=== PATIENT | female | born 1970 | race Caucasian/White ===

== ENCOUNTER 2022-05-11 11:14 | Outpatient (REF) | payer SELFPAY ==
[2022-05-11 12:36] LABS: ALT 30 U/L (14-59); AST 17 U/L (15-37); Albumin 3.7 g/dL (3.4-5.0); Alkaline Phosphatase 72 U/L (46-116); Anion Gap 8.2 mmol/L (3-11); BUN 12 mg/dL (7-18); Bilirubin, Total 0.3 mg/dL (0.2-1.0); CO2 27.8 mmol/L (21.0-32.0); CREATININE 0.8 mg/dL (0.55-1.02); Calcium 9.6 mg/dL (8.5-10.1); Chloride 107 mmol/L (98-107); Glucose 104 mg/dL (74-106); Potassium 4.4 mmol/L (3.5-5.1); Sodium 143 mmol/L (136-145); Total Protein 7.5 g/dL (6.4-8.2)
[2022-05-12 17:12] LABS: GC Result Negative (Negative)
[2022-05-13 08:50] LABS: Chlamydia Result Positive (Negative)
[2022-05-13 09:23] LABS: HIV-1/2 Ag & Ab Screen Negative (Negative)
[2022-05-14 10:28] LABS: Syphilis Serology (RPR) Negative (Negative)
== END 2022-05-11 11:15 | disposition home or self-care (01) ==
LOC: LBN 11:14
PROVIDERS: Visit Provider Nurse Practitioner Family
DX: I10 Essential (primary) hypertension (principal); A64 Unspecified sexually transmitted disease
CPT/HCPCS: 80053; 87389; 87491; 87591; 86592

== ENCOUNTER 2022-09-20 02:50 | Outpatient (CLI) | payer MEDICAID, SELFPAY ==
--- NOTE | 2022-09-20 12:30 | DI.MRI_ITS ---
Exam(s) MR CERVICAL SPINE WO EXAM: MR CERVICAL SPINE WO CLINICAL HISTORY: chronic neck pain, hx of cervical fracture c 2, m54.2,s12.100a TECHNIQUE: Multiplanar multisequence MRI of the cervical spine was performed without intravenous con trast. COMPARISON: MR MR BRAIN AND ORBIT WITH AND WITHOUT CONTRAST from 05/07/2010 FINDINGS: The examination is limited due to patient motion artifact. BONES: Vertebral body heights are maintained. Intervertebral disc spaces are normal. Alignment is nor mal. Bone marrow signal intensity is within normal limits. There is a fracture through the base of th e odontoid which appears old. There is normal marrow signal. There do appear to be mild degenerativ e changes seen at the old fracture site. There is a 1.1 x 0.9 cm well-circumscribed round T2 hyperin tense lesion in the clivus. This is not appear to been present on the MRI of the brain from 0. CERVICAL CORD: Craniovertebral junction is unremarkable. The cervical cord is normal size and signal intensity. SOFT TISSUES: Unremarkable. C2-3: No disc herniation or bulge is identified. No significant central spinal canal or neural forami nal stenosis. C3-4: No disc herniation or bulge is identified. No significant central spinal canal or neural forami nal stenosis C4-5: There is mild prominence of the osteophyte disc complex. No significant central spinal canal o r neural foraminal stenosis C5-6: There is mild prominence of the osteophyte disc complex. No significant central spinal canal o r neural foraminal stenosis C6-7: No disc herniation or bulge is identified. No significant central spinal canal or neural forami nal stenosis C7-T1: No disc herniation or bulge is identified. No significant central spinal canal or neural manan inal stenosis IMPRESSION: 1. Mild degenerative changes in the cervical spine but no significant central spinal canal or neural foraminal stenosis is present. 2. Well-circumscribed hyperintense T2 hyperintense lesion in the clivus. This area should be further evaluated with a CT scan and an MRI of the brain for further evaluation. 3. Old odontoid fracture. DATA REPOSITORY:
--- NOTE | 2022-09-20 12:30 | DI.RAD_ITS ---
Exam(s) XR ANKLE LT COMPLETE EXAM: XR ANKLE LT COMPLETE CLINICAL HISTORY: chronic left ankle pain,m25.572 TECHNIQUE: 2D digital imaging was performed of the left ankle. Three images were obtained. AP, lat eral and oblique views were obtained. COMPARISON: No exams were available for comparison FINDINGS: BONES: No acute fracture is present. No bony destructive lesion is seen. There is a small plantar narayan caneal spur. There is a small enthesophyte at the posterior calcaneus. JOINTS:The ankle mortise is normally aligned. SOFT TISSUE: Normal. IMPRESSION: Unremarkable radiographs of the left ankle. DATA REPOSITORY: RADIATION DOSE DELIVERED:
--- NOTE | 2022-09-20 12:38 | DI.RAD_ITS ---
Exam(s) XR ARTHRITIS SERIES EXAM: XR ARTHRITIS SERIES CLINICAL HISTORY: arthritic hands, assess for erosions,arthralgia,m25.541,m25.542. TECHNIQUE: 2D digital imaging was performed. COMPARISON: No exams were available for comparison FINDINGS: BONES: No acute fracture is present. No bony destructive lesion is seen. JOINTS: No dislocation present. The joint spaces are unremarkable. SOFT TISSUE: Normal. IMPRESSION: Unremarkable radiographs of bilat hands DATA REPOSITORY: RADIATION DOSE DELIVERED:
== END 2022-09-20 03:10 ==
LOC: DI 02:51
PROVIDERS: PCP Nurse Practitioner Family; Visit Provider Nurse Practitioner Family
DX: M47.812 Spondylosis without myelopathy or radiculopathy, cervical region (principal); M25.572 Pain in left ankle and joints of left foot; M25.541 Pain in joints of right hand; M25.542 Pain in joints of left hand
CPT/HCPCS: 72141; 73120; 73610

== ENCOUNTER 2022-10-04 01:31 | Outpatient (CLI) | payer MEDICAID, SELFPAY ==
--- NOTE | 2022-10-04 07:35 | DI.MAMMO_ITS ---
Exam(s) MAMMO SCREENING EXAM: MAMMO SCREENING CLINICAL HISTORY: screening,z12.39. TECHNIQUE: Bilateral full field digital CC and MLO mammographic images were obtained with 3D tomosyn thesis and utilizing computer aided detection (CAD). COMPARISON: None. This is a baseline mammogram on this 52-year-old patient. FINDINGS: Fibroglandular tissue pattern is predominately fatty. There is a benign-appearing small nodule in the upper outer quadrant of the left breast which has melina earance of benign intramammary lymph node. There are no spiculated masses nor malignant-appearing mi crocalcification groups in either breast. There is no significant architectural distortion nor skin thickening-retraction. IMPRESSION: Benign findings. No radiographic evidence of malignancy. BI-RADS Category 2 - Benign Findings Breast Density - Category A - Almost entirely fatty Breast density Category C or D implies that the patient has dense breast tissue. Dense breast tissue can make it harder to find cancer on a mammogram. Dense breast tissue is also associated with an incr eased risk of breast cancer. This information about the result of the mammogram report was provided to the patient to raise their awareness. Use this report when you speak with the patient about their risks for breast cancer, which includes their family history. At that time, you may recommend additional screening tests (Ultrasoun d or MRI) as these tests may add significant information. A negative radiographic report should not delay biopsy if a dominant or clinically suspicious mass is present. Up to ten percent of cancers are not identified on mammography. A negative report may reinforce clinical impression. Adenosis and dense breasts may obscure an underlying neoplasm. False positive reports average 6 to 10%. Patient will receive a letter notifying them of these results.
== END 2022-10-04 01:51 ==
LOC: DI 01:31
PROVIDERS: PCP Nurse Practitioner Family; Visit Provider Nurse Practitioner Family
DX: Z12.31 Encounter for screening mammogram for malignant neoplasm of breast (principal)
CPT/HCPCS: 77063; 77067

== ENCOUNTER 2022-10-24 01:12 | Outpatient (CLI) | payer MEDICAID, SELFPAY ==
--- NOTE | 2022-10-24 14:50 | DI.MRI_ITS ---
Exam(s) MR BRAIN WO EXAM: MR BRAIN WO CLINICAL HISTORY: Clivus lesion seen on cervical MRI, further eval,lesion of brain,g93.9. TECHNIQUE: Multiplanar multisequence MRI of the brain was performed. CONTRAST MATERIAL: Noncontrast. COMPARISON: MR MR CERVICAL SPINE WO from 09/20/2022 FINDINGS: VENTRICLES AND EXTRA AXIAL SPACES: Normal in size and morphology for the patient's age. HEMORRHAGE: None. CEREBRAL PARENCHYMA: No focus of restricted diffusion to suggest acute infarct. No space-occupying le bere identified. MIDLINE SHIFT: None. BRAINSTEM/CEREBELLUM: Normal. CALVARIUM: Normal. ENHANCEMENT: No suspicious enhancement identified. VISUALIZED PARANASAL SINUSES/MASTOIDS: Fluid noted within left mastoid air cells. Minimal mucous ret ention in ethmoid sinuses. OTHER FINDINGS: Circumscribed 10 x 17 by 10 millimeter cystic lesion seen in the right side of the cl ivus posteriorly. It does not appear significantly expansile nor invasive. Additional 10 millimeter by 8 millimeter cystic area is seen on the left-side inferiorly at the skull base. It follows CSF si gnal and may communicate with CSF. The findings could represent dural invagination into the clivus. This could be related to trauma as the patient has an old odontoid fracture. Other considerations inc lude simple bone cyst, Rathke's cleft cyst and neurenteric cyst. IMPRESSION: 10 x 17 millimeter CSF signal lesion in the right side of the clivus and additional left-sided 10 x 8 millimeters cystic lesion. The there have significant mass effect. Additional contrast-enhanced imag ing recommended. Unremarkable MRI of the brain. DATA REPOSITORY:
== END 2022-10-24 01:32 ==
LOC: DI 01:12
PROVIDERS: PCP Nurse Practitioner Family; Visit Provider Nurse Practitioner Family
DX: G93.9 Disorder of brain, unspecified (principal); R94.02 Abnormal brain scan
CPT/HCPCS: 70551

== ENCOUNTER 2022-10-24 02:17 | Outpatient (CLI) | payer MEDICAID, SELFPAY ==
[2022-10-24 15:54] LABS: Abs Immature Grans 0.03 10^3/uL (0.0-0.06); Absolute Basophil Count 0.06 10^3/uL (0.0-0.2); Absolute Eosinophil Count 0.09 10^3/uL (0.0-0.7); Absolute Lymphocyte Count 2.12 10^3/uL (1.2-3.4); Absolute Monocyte Count 1.06 10^3/uL (0.1-0.8); Absolute Neutrophil Count 6.07 10^3/uL (1.2-6.7); Basophils % 0.6; HCT 47.2 % (36.0-46.0); HGB 15.3 g/dL (11.2-15.7); Immature Grans % 0.3; Lymphocytes % 22.5; MCH 30.4 pg (27.0-33.0); MCHC 32.4 % (32.0-36.0); MCV 94 fL (80-95); MPV 10.3 fL (8.0-11.0); Monocytes % 11.2; Neutrophils % 64.4; Platelet Count 284 10^3/uL (130-400); RBC 5.03 10^6/uL (3.93-5.22); RDW 13.2 % (11.7-14.6); RDW-SD 45.7 fL; WBC 9.43 10^3/uL (4.4-10.8)
[2022-10-24 15:55] LABS: ESR 38 mm/hr (0-30)
[2022-10-24 17:31] LABS: ALT 29 U/L (14-59); AST 16 U/L (15-37); Albumin 3.6 g/dL (3.4-5.0); Alkaline Phosphatase 85 U/L (46-116); Anion Gap 9.3 mmol/L (3-11); BUN 9 mg/dL (7-18); Bilirubin, Total 0.4 mg/dL (0.2-1.0); CO2 26.7 mmol/L (21.0-32.0); Calcium 9.8 mg/dL (8.5-10.1); Calculated LDL 138 mg/dL (<100); Chloride 102 mmol/L (98-107); Cholesterol 200 mg/dL (<200); Estimated GFR 67.78 (mL/min/1.73m2); Glucose 105 mg/dL (74-106); HDL Cholesterol 39 mg/dL (40-60); Potassium 4.1 mmol/L (3.5-5.1); Sodium 138 mmol/L (136-145); Total Protein 7.8 g/dL (6.4-8.2); Triglyceride 118 mg/dL (<150)
[2022-10-24 17:40] LABS: C-Reactive Protein 2.21 mg/dL (0.0-0.3)
[2022-10-24 18:12] LABS: Hemoglobin A1C 5.6 % (<5.7)
== END 2022-10-24 02:18 | disposition home or self-care (01) ==
PROVIDERS: PCP Nurse Practitioner Family; Visit Provider Nurse Practitioner Family
DX: G89.29 Other chronic pain (principal); M25.50 Pain in unspecified joint
CPT/HCPCS: 36415; 80053; 80061; 85652; 83036; 84443; 85025; 86140

== ENCOUNTER 2022-10-29 10:11 | Outpatient (REF) | payer MEDICAID, SELFPAY ==
--- NOTE | 2022-10-29 08:40 | PAPFT_PTH ---
PATIENT: Loyda Mendoza LOC: [facility] U#:[id number] AGE/SX: 52/F ROOM: RE10/29/[address]: BRITTANIE De La Torre : 1970 BED: DIS: 10/29/2022 SPEC #: [id number] RECD: 10/29/22 12:58 STATUS: JAROD REQ #: [id number] MONI: 10/29/22 08:[address]: Gloria Diaz DEPT: [facility] Cytology RECD BY: Marina Castellanos Tissues: 1 - CX/ENDOCX FOR PAP SMEARS Procedures: PAP THIN PREP/UVM Screening HPV DNA PROBE Comments: [id number] (HPV 16 & 18/45) (CHLAMYDIA/GC)
[2022-10-30 13:35] LABS: Chlamydia Result Negative (Negative); GC Result Negative (Negative)
== END 2022-10-29 10:12 | disposition home or self-care (01) ==
LOC: LBN 10:11
PROVIDERS: PCP Nurse Practitioner Family; Visit Provider Nurse Practitioner Family
DX: Z11.3 Encounter for screening for infections with a predominantly sexual mode of transmission (principal); Z12.4 Encounter for screening for malignant neoplasm of cervix; R87.610 Atypical squamous cells of undetermined significance on cytologic smear of cervix (ASC-US); Z11.51 Encounter for screening for human papillomavirus (HPV); R87.810 Cervical high risk human papillomavirus (HPV) DNA test positive
CPT/HCPCS: 87491; 87591; 88142; 87624

== ENCOUNTER 2022-10-31 01:25 | Outpatient (CLI) | payer MEDICAID, SELFPAY ==
--- NOTE | 2022-10-31 08:00 | DI.MRI_ITS ---
Exam(s) MR BRAIN W EXAM: MR BRAIN W CLINICAL HISTORY: clivus lesion on brain MRI,F/U ABNL G93.9. TECHNIQUE: Multiplanar multisequence MRI of the brain was performed. CONTRAST MATERIAL: IV Contrast: 20 ML of Dotarem contrast administered. COMPARISON: MR MR BRAIN WO from 10/24/2022 FINDINGS: This is a limited postcontrast examination. The pre contrast examination was performed 10/24/2022. VENTRICLES AND EXTRA AXIAL SPACES: Normal in size and morphology for the patient's age. CEREBRAL PARENCHYMA: No focus of restricted diffusion to suggest acute infarct. No space-occupying le bere identified. MIDLINE SHIFT: None. BRAINSTEM/CEREBELLUM: Normal. CALVARIUM: There is again seen a well-circumscribed nonenhancing hypointense lesion in the right aspe ct the clivus measuring 1.4 x 0.7 cm. It is mildly expansile. No soft tissue component is identifie d. The 2nd lesion in the left aspect measures 0.8 x 0.7 cm. It also shows no enhancement following contrast administration. There is no associated soft tissue mass. ENHANCEMENT: No suspicious enhancement identified. VISUALIZED PARANASAL SINUSES/MASTOIDS: Clear. OTHER FINDINGS: None. IMPRESSION: Nonenhancing well-circumscribed homogeneous lesion seen in the clivus as described above. These may represent cysts. Plasmacytoma should also be considered. Malignancies such is metastasis, chordoma or chondrosarcoma are considered less likely. A CT scan of this area is recommended to assess the ma trix for calcification. DATA REPOSITORY:
[2022-10-31] MEDS: Normal Saline Flush 10 ML SYR IVP (10:20)
[2022-10-31] MEDS: Gadoterate meglumine 20 ML SYRINGE IVP (10:21)
== END 2022-10-31 01:45 ==
LOC: DI 01:25
PROVIDERS: PCP Nurse Practitioner Family; Visit Provider Nurse Practitioner Family
DX: G93.89 Other specified disorders of brain (principal); G93.0 Cerebral cysts; R51.9 Headache, unspecified
CPT/HCPCS: 70552

== ENCOUNTER 2022-12-07 00:49 | Outpatient (CLI) | payer MEDICAID, SELFPAY ==
--- NOTE | 2022-12-07 12:50 | DI.CT_ITS ---
Exam(s) CT HEAD WO EXAM: CT HEAD WO CLINICAL HISTORY: SKULL MASS, M89.8X8, CLIVAL MASS. TECHNIQUE: Imaging Protocol: Axial computed tomography images with coronal and sagittal reformatted images were created and reviewed COMPARISON: CR ORBITS_FOR FOREIGN BODY from 05/07/2010 MR MR BRAIN AND ORBIT WITH AND WITHOUT CONTRAST from 05/07/2010 MR MR BRAIN WO from 10/24/2022 MR MR BRAIN W from 10/31/2022 FINDINGS: Bones: The lesions noted in the clivus on prior MRI show smoothly marginated borders. There is no v isible calcified matrix. The the attenuation is equal to CSF. One appears to communicate with the C SF spaces and may represent CSF invagination. There are no features suspicious for malignancy. Find ings were not present in 2009 and therefore not congenital. Calvarium: Normal. Ventricles and Extra axial spaces: Normal in size and morphology for the patient's age. Hemorrhage: None. Cerebral parenchyma: Normal. Midline shift: None. Brainstem/Cerebellum: Normal. Visualized Paranasal sinuses/Mastoids: Clear. Soft Tissues: Prominent venous structure in the scalp posteriorly at the level of the posterior fossa . IMPRESSION: Lesions in the clivus do not appear masslike and appear to communicate with CSF spaces and may repres ent CSF invaginations. No bony destruction. RADIATION DOSE DELIVERED: 807.43mGy.cm Total DLP DATA REPOSITORY: All CT scans at this facility are submitted to the National Radiology Data Registry (NRDR) Dose Index Registry (DIR) with the [employer] (A[employer]). RADIATION OPTIMIZATION: All CT scans at this facility use at least one of these dose optimization te chniques: automated exposure control; mA and/or kV adjustment per patient size (includes targeted exa ms where dose is matched to clinical indication); or iterative reconstruction.
== END 2022-12-07 01:09 ==
LOC: DI 00:49
PROVIDERS: PCP Nurse Practitioner Family; Visit Provider Neurological Surgery
DX: M84.88 Other disorders of continuity of bone, other site (principal); R93.0 Abnormal findings on diagnostic imaging of skull and head, not elsewhere classified
CPT/HCPCS: 70450

== ENCOUNTER 2023-02-25 11:01 | Outpatient (CLI) | payer MEDICAID, SELFPAY ==
[2023-02-25 12:26] LABS: ESR 31 mm/hr (0-30)
[2023-02-25 17:33] LABS: CRP, High Sensitivity 6.23 mg/L (See Note); Rheumatoid Factor <8.6 IU/mL (<12.0)
[2023-02-26 12:20] LABS: ANA Interpretation Negative (Negative)
[2023-02-26 13:29] LABS: dsDNA Ab, IgG <12.3 IU/mL (<30.0)
== END 2023-02-25 11:02 | disposition home or self-care (01) ==
LOC: LOS 11:01
PROVIDERS: PCP Nurse Practitioner Family; Referring Provider Nurse Practitioner Family; Visit Provider Nurse Practitioner Family
DX: M79.7 Fibromyalgia (principal); M79.675 Pain in left toe(s); M25.541 Pain in joints of right hand; M25.542 Pain in joints of left hand; G89.29 Other chronic pain; M25.572 Pain in left ankle and joints of left foot; R70.0 Elevated erythrocyte sedimentation rate
CPT/HCPCS: 36415; 85652; 86141; 86038; 86225; 86431

== ENCOUNTER 2023-02-26 02:12 | Outpatient (CLI) | payer MEDICAID, SELFPAY ==
--- NOTE | 2023-02-26 07:30 | DI.RAD_ITS ---
Exam(s) XR FOOT LT COMPLETE EXAM: XR FOOT LT COMPLETE CLINICAL HISTORY: left 1st MTP joint pain, chronic toe pain lt foot, M79.675, G89.29. TECHNIQUE: 2D digital imaging was performed of the left foot. Three images were obtained. AP, obli que and lateral views were obtained. COMPARISON: No exams were available for comparison FINDINGS: BONES: No acute fracture is present. No bony destructive lesion is seen. There is a small enthesophyt e at the posterior calcaneus. There is a small spur at the inferior calcaneus. JOINTS: No dislocation present. There is a mild hallux valgus deformity. There is mild narrowing of the 1st MTP joint. SOFT TISSUE: Normal. IMPRESSION: Mild narrowing of the 1st MTP joint. DATA REPOSITORY: RADIATION DOSE DELIVERED:
== END 2023-02-26 02:32 ==
LOC: DI 02:12
PROVIDERS: PCP Nurse Practitioner Family; Visit Provider Nurse Practitioner Family
DX: M19.072 Primary osteoarthritis, left ankle and foot
CPT/HCPCS: 73630

== ENCOUNTER → 2023-05-09 00:50 | Outpatient (CLI) | payer MEDICAID, SELFPAY ==
--- NOTE | 2023-05-09 08:24 | DI.RAD_ITS ---
Exam(s) XR CERVICAL SP ALCANTARA TRAUMA 2-3V EXAM: XR CERVICAL SP ALCANTARA TRAUMA 2-3V CLINICAL HISTORY: ODONTOID FX S12.112S C1-C2 FUSION. TECHNIQUE: 2D digital imaging was performed. COMPARISON: MR MR CERVICAL SPINE WO from 09/20/[address] HEAD WO from 12/07/2022 FINDINGS: BONES: Since the prior examination the patient has undergone a C1-C2 fusion. Alignment appears anato trice the patient has old fracture through the base of the odontoid is again seen. No acute fractures identified. Vertebral bodies are unremarkable. DISKS: At C5-C6 there is disc space narrowing and endplate osteophytes. ALIGNMENT: There is straightening of the normal cervical lordosis. The odontoid and atlantoaxial art iculations are normal. SOFT TISSUE: Normal. The lung apices are clear. IMPRESSION: 1. Interval C1-C2 fusion. Stable odontoid fracture. 2. Mild degenerative changes in the cervical spine. DATA REPOSITORY: RADIATION DOSE DELIVERED:
== END ==
PROVIDERS: PCP Nurse Practitioner Family; Visit Provider Neurological Surgery
DX: M47.12 Other spondylosis with myelopathy, cervical region (principal); M43.22 Fusion of spine, cervical region
CPT/HCPCS: 72040

== ENCOUNTER 2023-06-28 01:39 | Outpatient (CLI) | payer MEDICAID, SELFPAY ==
--- NOTE | 2023-06-28 07:00 | DI.RAD_ITS ---
Exam(s) XR KNEE LT 3V AP,LAT,NARCISO EXAM: XR KNEE LT 3V AP,LAT,NARCISO CLINICAL HISTORY: left knee pain,m25.562. TECHNIQUE: 2D digital imaging was performed. COMPARISON: No exams were available for comparison FINDINGS: 3 views No evidence of fracture or obvious joint effusion. Varicosities are noted. Bone density normal. No osseous lesions. No obvious degenerative changes. IMPRESSION: No acute osseous findings. No obvious joint effusion. Venous varicosities are noted around the ante rior and medial aspect of the knee. DATA REPOSITORY: RADIATION DOSE DELIVERED:
== END 2023-06-28 01:59 ==
LOC: DI 01:39
PROVIDERS: PCP Nurse Practitioner Family; Visit Provider Nurse Practitioner Family
DX: M25.562 Pain in left knee (principal)
CPT/HCPCS: 73562

== ENCOUNTER 2023-09-29 11:00 | Emergency (ER) | payer MEDICAID, SELFPAY ==
[2023-09-29] VITALS (23 sets, daily range): BP systolic 119–139; BP diastolic 54–90; PULSE 54–75; RESP 12–25; TEMP 36.6–36.8; O2SAT 95–98
--- NOTE | 2023-09-29 11:15 | DI.CT_ITS ---
Exam(s) CT HEAD WO EXAM: CT HEAD WO CLINICAL HISTORY: headache, craniotomy 09/17. TECHNIQUE: Imaging Protocol: Axial computed tomography images with coronal and sagittal reformatted images were created and reviewed COMPARISON: CT CT HEAD WO from 12/07/2022 FINDINGS: Ventricles and Extra axial spaces: Extra-axial fluid collection with some bubbles of air in the regio n of the left frontal parietal craniotomy. Maximal thickness 7 millimeters. No significant mass eff ect. Ventricles normal in size and morphology for the patient's age. Hemorrhage: None. Cerebral parenchyma: No evidence of acute infarct or mass. Midline shift: None. Brainstem/Cerebellum: Normal. Calvarium: Left frontal parietal craniotomy Visualized Paranasal sinuses:Clear. Mastoids: Opacification of left mastoid air cells. Soft Tissues: Left skin jimbo. Mild swelling. No drainable hematoma. ORBITS: Unremarkable. PITUITARY: Normal. IMPRESSION: Status post left craniotomy. Subjacent extra-axial fluid collection which may be within normal limit s post recent surgery. RADIATION DOSE DELIVERED: Total DLP DATA REPOSITORY: All CT scans at this facility are submitted to the National Radiology Data Registry (NRDR) Dose Index Registry (DIR) with the [employer] (ACR). RADIATION OPTIMIZATION: All CT scans at this facility use at least one of these dose optimization te chniques: automated exposure control; mA and/or kV adjustment per patient size (includes targeted exa ms where dose is matched to clinical indication); or iterative reconstruction.
--- NOTE | 2023-09-29 11:24 | W.ED.GENAD ---
HPI General Date/Time Provider Initiated Documentation: 09/29/23 11:01. Limitations to Documentation: no limitations. Information obtained by: patient. History of Present Illness 53 year old F presents to the emergency department with the chief complaint of headache, described as moderate, Patient started experiencing this day(s) (1) and it has been constant. No relieving factors improve symptom(s), Other factors that worsen symptoms (bright lights) . Patient notes denies chest pain, fever/chills and shortness of breath. Patient did receive the following treatments prior to arrival, none Related Data Home Medications Medication Instructions Recorded Confirmed multivitamin 1 tab PO DAILY 06/04/13 09/29/23 cholecalciferol (vitamin D3) 25 25 mcg PO DAILY 05/11/22 09/29/23 mcg (1,000 unit) capsule vitamin B complex (B 1 tab PO DAILY 05/11/22 09/29/23 Complex-Vitamin B12 tablet) acetaminophen 500 mg tablet 1,000 mg PO TID 10/29/22 09/29/23 (Tylenol Extra Strength) lisinopril 20 mg tablet 20 mg PO DAILY #90 tabs 10/29/22 09/29/23 duloxetine 60 mg capsule,delayed 60 mg PO DAILY #90 caps 11/12/22 09/29/23 release ondansetron 4 mg disintegrating 4 mg PO Q8H PRN nausea and 01/17/23 09/29/23 tablet vomiting #20 tabs diazepam 2 mg tablet 2 mg PO PRN 06/26/23 09/29/23 celecoxib 200 mg capsule (Celebrex) 200 mg PO BID 09/23/23 09/29/23 levetiracetam 750 mg tablet 1,500 mg PO BID 09/23/23 09/29/23 oxycodone 5 mg tablet 2.5 mg PO Q6H PRN 09/23/23 09/29/23 Previous Rx's Medication Instructions Recorded lisinopril 20 mg tablet 20 mg PO DAILY #90 tabs 10/29/22 duloxetine 60 mg capsule,delayed 60 mg PO DAILY #90 caps 11/12/22 release ondansetron 4 mg disintegrating 4 mg PO Q8H PRN nausea and 01/17/23 tablet vomiting #20 tabs Allergies Allergy/AdvReac Type Severity Reaction Status Date / Time No Known Allergies Allergy Verified 09/29/23 11:21 General Stated Complaint: Headache AP: 2 Review of Systems All systems reviewed & are unremarkable except as noted in HPI and below Constitutional Constitutional: Denies chills, Denies fever(s) and Denies weakness Eyes Eyes: Denies loss of vision Cardiovascular Cardiovascular: Denies chest pain and Denies dyspnea Respiratory Respiratory: Denies cough and Denies dyspnea Gastrointestinal Gastrointestinal: Denies abdominal pain and Denies vomiting Integumentary/Breasts Skin/Breast: Denies rash Neurologic Neurologic: Denies loss of vision and Denies weakness Exam Const General: no acute distress Orientation: alert HENMT Head: no contusions and no hematomas Ears: external ears normal General nose exam: external nose normal Mouth: moist mucous membranes Eyes General: appearance normal, both eyes and all related structures Neck Neck: normal visual inspection Resp Effort & Inspection: normal respiratory effort and able to speak in complete sentences Cardio Rate: regular rate Skin General skin exam: no rashes or lesions noted Neuro General: patient alert and patient oriented x3 Extrem General: normal to inspection Psych Mental Status: mental status grossly normal Course Vital Signs Vital signs: Vital Signs Temperature 36.8 C 09/29/23 11:13 Pulse 70 09/29/23 11:13 Respiratory Rate 18 09/29/23 11:13 Blood Pressure 121/72 09/29/23 11:13 Pulse Oximetry 98 09/29/23 11:13 Temperature 36.8 C 09/29/23 11:13 Temperature Source Temporal Artery Scan 09/29/23 11:13 Pulse 70 09/29/23 11:13 Respiratory Rate 18 09/29/23 11:13 Blood Pressure 121/72 09/29/23 11:13 Blood Pressure Position Supine 09/29/23 11:13 Pulse Oximetry 98 09/29/23 11:13 Oxygen Delivery Method Room Air 09/29/23 11:13 Oxygen Flow Rate 0 09/29/23 11:13 Medical Decision Making 53 yo female with hx of htn, fibromyalgia, frequent headaches, who had an attempted procedure to repair a tegmen defect earlier this month with [facility] [place], had a craniotomy but then aborted the procedure due to seizures, comes in with headahce similar to her prior headaches since lastnight. Denies fevers, chills, vision changes though she is sensitive to light and makes the pain worse. No neck stiffness or pain. She is caox4 on arrival. PERRL, eomi. She has jimbo on the left parietal scalp that appear well healed without erythema or discharge. No meningismus, no focal deficits, clear speech. She states the pain has slowly worsened since last night and localizes to the left frontal and left posterior head. Will treat as tension headache vs migraine with compazine and benadryl and obtain noncontrast CT gien the recent procedure. No findings on exam to suggest operations inspector infection labs unremarkable, ct shows expected post op changes, will consult with neurosurgery at [facility] and have them review the CT. Patient stable and states head pain significantly improved. discussed case with neurosurgery resident who reviewed the case with his team and did not feel there was any concerning findings on the CT. She continues to feel well and hsa no pain, they will follow up with her this week and return precautions given Differential Diagnosis Differential Diagnosis: migraine, headache, post op complication, hemorrhage Medical Records Medical records reviewed: Yes I reviewed the patient's medical records. Imaging Data Radiologic Study: Attestation: I personally reviewed and interpreted this imaging study as follows: Imaging: CT Scan Radiologist's impression: MPRESSION: 1. Surgical changes of left pterional craniotomy with postop surgical bed extra-axial collection measuring 7 mm. 2. No large territorial infarct, significant midline shift or mass. Lab Data Lab results reviewed: Yes I reviewed the patient's lab results. Quality:SDOH Health Related Social Needs: No Data to Display PFSH All Active Problems (Updated 09/29/23 @ 13:22 by Srinivasan Pruitt MD) Headache (Acute) Temporal encephalocele (Acute) Followed by [facility] ENT CSF leak from ear (Acute) Left ear Major depressive disorder, recurrent (Chronic) Chronic neck pain (Chronic) Chronic pain of left ankle (Chronic) Essential hypertension (Chronic) Insomnia (Chronic) Generalized anxiety disorder (Chronic) Chronic headaches (Chronic) Left ear hearing loss (Chronic) Fibromyalgia (Chronic) Abnormal Papanicolaou smear of cervix with positive human papilloma virus (HPV) test (Acute) 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 Son No problems noted. Daughter No problems noted. Social History (Updated 10/30/22 @ 17:31 by Lenora Hardin) Smoking/Tobacco Use Status: Current every day Tobacco Type: cigarettes and e-cigarettes Quit status: considering quitting Second Hand Exposure: Yes Smoking risk assessment performed?: Yes Alcohol Intake: current Alcohol Intake frequency: holidays/special occasions only Alcohol type: wine Drug use: Daily Substance use type: marijuana Caregiver/Support person: No Household members: spouse, children and adopted family Housing: house Communication Needs: Hard of Hearing Do you need help understanding health information?: Rarely Pets and animals: Yes Pets and animals: dog(s) Sexually active: Yes Do you think of yourself as: straight/heterosexual Current gender identity: female What is your relationship status?: How often do you talk on the phone with friends or family?: three or more times per week How often do you get together with friends or relatives?: three or more times per week How often do you attend pentecostal or caodaism services?: decline to answer Do you belong to any clubs or organized social groups?: no Panel score (0-1 are the most socially isolated patients): 2 What type of physical activity do you participate in: walking and bicycling Duration: 15-30 minutes/day Frequency: 3-4 times per week Duyen/Congregation: No preference Special duyen needs: No Seatbelt use: never Helmet use: No Drive intox or ride w/intox steam train driver: No Female Reproductive History Menstrual Menopause type: natural Date of menopause: 09/08/21 History History 4 Para 3 Hx # Term Pregnancies 2 Multiple births Hx # Pregnancies 1 Ectopic pregnancies AB induced Hx Number of Living Children 3 AB spontaneous 1 Past Pregnancies Del. Date GA/Weeks # Preg Succ Route Wgt Sex Labor Lgth Anesthesia Location Prov Complic 07/26/89 40 No Yes vaginal 3005.049 g [facility] 06/27/91 0 No Yes vaginal 3203.496 g Female [facility] 04/22/93 34 No Yes vaginal 2551.457 g Male [facility] Delivery Date: 07/26/89 Last Updated by: Brandi Marquez MD [facility] Delivery Date: 06/27/91 Last Updated by: Brandi Marquez MD Aily[facility] Delivery Date: 04/22/93 Last Updated by: MD Jamie Matos Discharge Plan Disposition Patient Disposition: Home Condition: Stable Discharge Details Clinical Impression: Headache Primary Care Provider: Gloria Diaz ED Provider: Srinivasan Pruitt Home Meds and New Rx's Prescriptions: Continued vitamin B complex [B Complex-Vitamin B12] Tablet 1 tab PO DAILY cholecalciferol (vitamin D3) 25 mcg (1,000 unit) capsule 25 mcg PO DAILY acetaminophen [Tylenol Extra Strength] 500 mg tablet 1,000 mg PO TID lisinopril 20 mg tablet 20 mg PO DAILY Qty: 90 3RF Rx Instructions: Take 1 tab daily diazepam 2 mg tablet 2 mg PO PRN Patient Comments: TAKE ONE TABLET BY MOUTH EVERY 6 HOURS NEEDED FOR MUSCLE SPASMS multivitamin 1 EACH tablet 1 tab PO DAILY duloxetine 60 mg capsule,delayed release(DR/EC) 60 mg PO DAILY Qty: 90 3RF Rx Instructions: Take 1 pill daily ondansetron 4 mg tablet,disintegrating 4 mg PO Q8H PRN (Reason: nausea and vomiting) Qty: 20 0RF Rx Instructions: Per [facility] Neurosurgery 01/09/23. -hb celecoxib [Celebrex] 200 mg capsule 200 mg PO BID Patient Comments: Started 09/20/23 levetiracetam 750 mg tablet 1,500 mg PO BID Patient Comments: Start date 09/20/23 oxycodone 5 mg tablet 2.5 mg PO Q6H PRN Patient Comments: Started 09/20/23 Discharge Instructions Instructions: General Headache (ED) Additional Instructions: your cat scan did not show concerning findings and your neurosurgery team at [facility] also felt the cat scan was not concerning after reviewing it themselves. they should contact you for a follow up appointment this week if you feel more ill, have severe worsening pain or new symptoms such as fevers return to the emergency department
[2023-09-29] MEDS: diphenhydrAMINE 50 MG/ML VIAL 25 MG IVP (11:33)
[2023-09-29] MEDS: Prochlorperazine 10 MG/2 ML VIAL IVP (11:33)
[2023-09-29] MEDS: Normal Saline 1,000 ML 1000 ML IV (11:33)
[2023-09-29 11:36] LABS: Abs Immature Grans 0.01 10^3/uL (0.0-0.06); Absolute Basophil Count 0.06 10^3/uL (0.0-0.2); Absolute Eosinophil Count 0.16 10^3/uL (0.0-0.7); Absolute Lymphocyte Count 2.24 10^3/uL (1.2-3.4); Absolute Neutrophil Count 5.12 10^3/uL (1.2-6.7); Basophils % 0.7; HCT 39.9 % (36.0-46.0); HGB 13.2 g/dL (11.2-15.7); Immature Grans % 0.1; Lymphocytes % 27.4; MCH 30.9 pg (27.0-33.0); MCHC 33.1 % (32.0-36.0); MCV 93 fL (80-95); MPV 9.7 fL (8.0-11.0); Monocytes % 7.3; Neutrophils % 62.5; Platelet Count 397 10^3/uL (130-400); RBC 4.27 10^6/uL (3.93-5.22); RDW 13.2 % (11.7-14.6); RDW-SD 45.2 fL; WBC 8.19 10^3/uL (4.4-10.8)
[2023-09-29 11:53] LABS: ALT 26 U/L (14-59); AST 18 U/L (15-37); Alkaline Phosphatase 72 U/L (46-116); Anion Gap 9.4 mmol/L (3-11); BUN 19 mg/dL (7-18); Bilirubin, Total 0.2 mg/dL (0.2-1.0); CO2 25.6 mmol/L (21.0-32.0); CREATININE 0.8 mg/dL (0.55-1.02); Calcium 9.2 mg/dL (8.5-10.1); Chloride 104 mmol/L (98-107); Estimated GFR 88.05 (mL/min/1.73m2); Glucose 106 mg/dL (74-106); Potassium 3.9 mmol/L (3.5-5.1); Sodium 139 mmol/L (136-145); Total Protein 7.1 g/dL (6.4-8.2)
--- NOTE | 2023-09-29 12:05 | DI.VRAD_ITS ---
PROCEDURE INFORMATION: Exam: CT Head Without Contrast Exam date and time: 09/29/2023 11:50 AM Age: 53 years old Clinical indication: Pain; Prior surgery; Surgery date: <1 month; Surgery type: Tegmen defect / headache, craniotomy 09/17 TECHNIQUE: Imaging protocol: Computed tomography of the head without contrast. COMPARISON: CT HEAD WO 12/07/2022 12:50 PM FINDINGS: Brain: Expected extra-axial fluid with pockets of air at the surgical bed measuring 7 mm. No significant mass effect or midline shift. No uncal herniation. No large territorial infarct. Cerebral ventricles: No ventriculomegaly. Pituitary gland and sella: There is a partially empty sella. Paranasal sinuses: Mild mucosal disease the right ethmoid air cells. Mastoid air cells: There is opacification of the left mastoid air cells. Bones/joints: Partially included transpedicular screws of C1. Surgical changes left pterional craniotomy. Soft tissues: Unremarkable. IMPRESSION: 1. Surgical changes of left pterional craniotomy with postop surgical bed extra-axial collection measuring 7 mm. 2. No large territorial infarct, significant midline shift or mass. Dictated and Authenticated by: Nickolas Thompson MD. Ordering:NUSRAT Mattson MD
== END 2023-09-29 13:32 | disposition home or self-care (01) ==
PROVIDERS: Emergency Provider Emergency Medicine; PCP Nurse Practitioner Family
DX: R51.9 Headache, unspecified (principal); I10 Essential (primary) hypertension; F17.290 Nicotine dependence, other tobacco product, uncomplicated; F17.210 Nicotine dependence, cigarettes, uncomplicated; Z98.1 Arthrodesis status
CPT/HCPCS: 36415; 80053; 96361; 96374; 99284; 70450; 83735; 85025; J0780; J1200

== ENCOUNTER 2023-10-30 09:49 | Outpatient (REF) | payer MEDICAID, SELFPAY ==
--- NOTE | 2023-10-30 09:12 | PAPFT_PTH ---
PATIENT: Loyda Mendoza LOC: [facility] U#:[id number] AGE/SX: 53/F ROOM: RE10/30/[address]: BRITTANIE De La Torre : 1970 BED: DIS: 10/30/2023 SPEC #: [id number] RECD: 10/30/23 13:08 STATUS: JAROD REAdelita #: [id number] MONI: 10/30/23 09:[address]: Gloria Diaz [facility]PT[facility] Cytology RECD BY: Marina Castellanos Tissues: 1 - CX/ENDOCX FOR PAP SMEARS Procedures: PAP THIN PREP/UVM Screening HPV DNA PROBE Comments: [id number] (HPV 16 & 18/45)
== END 2023-10-30 09:50 | disposition home or self-care (01) ==
LOC: LBN 09:49
PROVIDERS: PCP Nurse Practitioner Family; Visit Provider Nurse Practitioner Family
DX: Z01.419 Encounter for gynecological examination (general) (routine) without abnormal findings (principal); Z12.4 Encounter for screening for malignant neoplasm of cervix
CPT/HCPCS: 88142; 87624

== ENCOUNTER → 2023-11-08 00:44 | Outpatient (CLI) | payer MEDICAID, SELFPAY ==
--- NOTE | 2023-11-08 15:15 | DI.MAMMO_ITS ---
Exam(s) MAMMO SCREENING EXAM: MAMMO SCREENING CLINICAL HISTORY: screening,Z12.39 TECHNIQUE: Mammograms were interpreted according to the usual protocol including computer analysis w [employer] CAD system, tomosynthesis and C-view imaging. COMPARISON: 2022 FINDINGS: The breasts are composed of mainly fatty density , Breast Density category A. No suspicious masses or suspicious microcalcifications are seen. No skin thickening or abnormal axillary lymph nodes are seen. There has been no significant change from prior exam. IMPRESSION: BI-RADS Category 1, Negative mammogram Yearly screening mammography is recommended. Breast Density - Category A, fatty density. A negative radiographic report should not delay biopsy if a dominant or clinically suspicious mass is present. Up to ten percent of cancers are not identified on mammography. A negative report may reinforce clinical impression. Adenosis and dense breasts may obscure an underlying neoplasm. False positive reports average 6 to 10%. Patient will receive a letter notifying them of these results.
== END ==
PROVIDERS: PCP Nurse Practitioner Family; Visit Provider Nurse Practitioner Family
DX: Z12.31 Encounter for screening mammogram for malignant neoplasm of breast (principal)
CPT/HCPCS: 77063; 77067

== ENCOUNTER 2024-01-31 02:45 | Outpatient (CLI) | payer MEDICAID, SELFPAY ==
[2024-01-31 16:14] LABS: Abs Immature Grans 0.01 10^3/uL (0.0-0.06); Absolute Basophil Count 0.06 10^3/uL (0.0-0.2); Absolute Lymphocyte Count 1.72 10^3/uL (1.2-3.4); Absolute Monocyte Count 0.47 10^3/uL (0.1-0.8); Absolute Neutrophil Count 4.02 10^3/uL (1.2-6.7); Basophils % 0.9 %; Eosinophils % 3.1 %; HGB 13.6 g/dL (11.2-15.7); Immature Grans % 0.2 %; Lymphocytes % 26.5 %; MCH 31.2 pg (27.0-33.0); MCHC 33.2 % (32.0-36.0); MCV 94 fL (80-95); MPV 10.6 fL (8.0-11.0); Monocytes % 7.3 %; Platelet Count 275 10^3/uL (130-400); RBC 4.36 10^6/uL (3.93-5.22); RDW 12.3 % (11.7-14.6); WBC 6.48 10^3/uL (4.4-10.8)
[2024-01-31 17:00] LABS: ALT 26 U/L (14-59); AST 16 U/L (15-37); Albumin 3.5 g/dL (3.4-5.0); Alkaline Phosphatase 79 U/L (46-116); Anion Gap 8.5 mmol/L (3-11); BUN 13 mg/dL (7-18); Bilirubin, Total 0.3 mg/dL (0.2-1.0); CO2 27.5 mmol/L (21.0-32.0); CREATININE 0.9 mg/dL (0.55-1.02); Calcium 8.8 mg/dL (8.5-10.1); Chloride 102 mmol/L (98-107); Estimated GFR 76.44 (mL/min/1.73m2); Glucose 93 mg/dL (74-106); Potassium 4.3 mmol/L (3.5-5.1); Sodium 138 mmol/L (136-145); Total Protein 7.2 g/dL (6.4-8.2)
== END 2024-01-31 02:46 | disposition home or self-care (01) ==
LOC: LBO 02:45
PROVIDERS: PCP Nurse Practitioner Family; Visit Provider Nurse Practitioner Family
DX: Z01.818 Encounter for other preprocedural examination (principal)
CPT/HCPCS: 36415; 80053; 85025

== ENCOUNTER 2024-02-06 08:26 | Outpatient (CLI) | payer MEDICAID, SELFPAY ==
--- NOTE | 2024-02-06 08:30 | RT.EKG_ITS ---
APPROVED REPORT Exam: Resting ECG Reason for Exam: preop EKG Patient Location: O HR:56 bpm ECG Measurements Heart Rate 56 AXIS OR 191 P 55 QRSd 108 QRS 25 QT 493 T 49 QTc 476 Conclusion Sinus rhythm...normal P axis, V-rate 50- 99 Borderline low voltage, extremity leads...all extremity leads <0.6mV Otherwise normal ECG
== END 2024-02-06 08:27 | disposition home or self-care (01) ==
PROVIDERS: PCP Nurse Practitioner Family; Visit Provider Nurse Practitioner Family
DX: Z01.818 Encounter for other preprocedural examination (principal)
CPT/HCPCS: 93005; 93010

== ENCOUNTER 2024-10-30 19:44 | Emergency (ER) | payer MEDICAID, SELFPAY ==
--- NOTE | 2024-10-30 19:45 | DI.RAD_ITS ---
Exam(s) XR CHEST 2V PA LATERAL EXAM: XR CHEST 2V PA LATERAL CLINICAL HISTORY: cough, sob TECHNIQUE: 2D digital imaging was performed of the chest. Two images were obtained. PA and lateral views were obtained. COMPARISON: No exams were available for comparison FINDINGS: MEDIASTINUM: Normal. HEART: Normal. PULMONARY VASCULATURE: Normal. LUNGS: Clear. PLEURAL SPACE: No pleural effusion or pneumothorax. BONE:Within normal limits for the patient's age. OTHER FINDINGS:Normal. IMPRESSION: No acute pulmonary findings. DATA REPOSITORY: RADIATION DOSE DELIVERED:
[2024-10-30 19:47] VITALS: BP 150/71; PULSE 80; RESP 18; TEMP 36.7; O2SAT 97
--- NOTE | 2024-10-30 19:52 | W.ED.GENAD ---
Discharge Plan Disposition Patient Disposition: Home Condition: Stable Discharge Details Clinical Impression: Viral syndrome Primary Care Provider: Gloria Diaz ED Provider: Gideon Mayer Home Meds and New Rx's Prescriptions: Continued vitamin B complex [B Complex-Vitamin B12] Tablet 1 tab PO DAILY cholecalciferol (vitamin D3) 25 mcg (1,000 unit) capsule 25 mcg PO DAILY multivitamin 1 EACH tablet 1 tab PO DAILY levetiracetam 750 mg tablet 1,500 mg PO BID Patient Comments: Start date 09/20/23 duloxetine 60 mg capsule,delayed release(DR/EC) 60 mg PO DAILY Qty: 90 3RF Rx Instructions: Take 1 pill daily ondansetron 4 mg tablet,disintegrating 4 mg PO Q8H PRN (Reason: nausea and vomiting) Qty: 30 0RF acetaminophen 325 mg tablet See Rx Instructions PO Q6H PRN Rx Instructions: 975mg orally every 6 hours PRN; lisinopril 20 mg tablet 20 mg PO DAILY Qty: 90 3RF Rx Instructions: Take 1 tab daily propranolol 60 mg capsule,extended release 24 hr 60 mg PO DAILY Patient Comments: TAKE ONE CAPSULE BY MOUTH EVERY DAY tramadol 50 mg tablet 50 mg PO DAILY PRN Patient Comments: TAKE ONE TABLET BY MOUTH EVERY 6 HOURS NEEDED FOR PAIN magnesium oxide 400 mg (241.3 mg magnesium) tablet 400 mg PO DAILY Patient Comments: TAKE ONE TABLET BY MOUTH EVERY DAY hydroxyzine HCl 10 mg tablet 10 mg PO BID PRN Patient Comments: TAKE ONE TABLET BY MOUTH TWICE A DAY NEEDED FOR HEADACHE No Action baclofen 5 mg tablet 5 - 10 mg PO TID PRN (Reason: muscle spasm) Qty: 90 0RF azithromycin 250 mg tablet 250 mg PO DAILY 5 Days Qty: 6 0RF Rx Instructions: Take 2 tablets on day one and then 1 tablet once a day for the next 4 days amoxicillin-pot clavulanate 875-125 mg tablet 1 tab PO Q12H Qty: 14 0RF Rx Instructions: Take 1 tablet twice a day for 7 days Discharge Instructions Instructions: Cough, runny nose, and the common cold, Albuterol Additional Instructions: You were seen in the emergency department for your viral syndrome, you are negative for COVID and the flu, your chest x-ray shows no pneumonia. Please take regular dose of cough medicine and use the provided inhaler for any symptomatic shortness of breath, please obtain igic-iee-ijzrbor SpO2 monitor at any pharmacy and monitor your oxygen, please return for any respiratory distress or oxygen readings in the 88% range. I do not think empiric antibiotics are warranted at this time, you may follow-up with express care or your primary care provider if you are still sick after around the 10-day brittany for empiric antibiotics at that time. Referrals: Gloria Diaz NP [Primary Care Provider] - Discharge Data Discharge Date/Time-TO BE ENTERED AT DEPARTURE: 10/30/24 21:24 HPI General Date/Time Provider Initiated Documentation: 10/30/24 19:51. HPI Narrative: 54 year-old female presents to ED today by POV/ambulating with a chief complaint of chest congestion, cough, nausea with onset today- recently her nephew was diagnosed with pneumonia, she spent 3 days with him. Quality described as generalized malaise/cold symptoms, no radiation to respiratory distress, intractable vomiting, abdominal pain, chest pain, high fevers. Severity is described as mild to moderate. Palliating factors include took one dose Tylenol at 6pm. Provoking factors include nothing specific. Patient not anticoagulated. Related Data Home Medications ?Medication ?Instructions ?Recorded ?Confirmed multivitamin 1 tab PO DAILY 06/04/13 11/02/24 cholecalciferol (vitamin D3) 25 25 mcg PO DAILY 05/11/22 11/02/24 mcg (1,000 unit) capsule vitamin B complex (B 1 tab PO DAILY 05/11/22 11/02/24 Complex-Vitamin B12 tablet) levetiracetam 750 mg tablet 1,500 mg PO BID 09/23/23 11/02/24 duloxetine 60 mg capsule,delayed 60 mg PO DAILY #90 caps 11/18/23 11/02/24 release ondansetron 4 mg disintegrating 4 mg PO Q8H PRN nausea and 03/05/24 11/02/24 tablet vomiting #30 tabs acetaminophen 325 mg tablet See Rx Instructions PO Q6H PRN 05/22/24 11/02/24 lisinopril 20 mg tablet 20 mg PO DAILY #90 tabs 09/25/24 11/02/24 hydroxyzine HCl 10 mg tablet 10 mg PO BID PRN 10/30/24 11/02/24 magnesium oxide 400 mg (241.3 mg 400 mg PO DAILY 10/30/24 11/02/24 magnesium) tablet propranolol 60 mg capsule,24 60 mg PO DAILY 10/30/24 11/02/24 hr,extended release tramadol 50 mg tablet 50 mg PO DAILY PRN 10/30/24 11/02/24 amoxicillin 875 mg-potassium 1 tab PO Q12H #14 tabs 11/02/24 11/02/24 clavulanate 125 mg tablet azithromycin 250 mg tablet 250 mg PO DAILY 5 days #6 tabs 11/02/24 11/02/24 baclofen 5 mg tablet 5 - 10 mg (1 - 2 x 5 mg) PO TID 11/02/24 11/02/24 PRN muscle spasm #90 tabs Previous Rx's ?Medication ?Instructions ?Recorded duloxetine 60 mg capsule,delayed 60 mg PO DAILY #90 caps 11/18/23 release ondansetron 4 mg disintegrating 4 mg PO Q8H PRN nausea and 03/05/24 tablet vomiting #30 tabs lisinopril 20 mg tablet 20 mg PO DAILY #90 tabs 09/25/24 amoxicillin 875 mg-potassium 1 tab PO Q12H #14 tabs 11/02/24 clavulanate 125 mg tablet azithromycin 250 mg tablet 250 mg PO DAILY 5 days #6 tabs 11/02/24 baclofen 5 mg tablet 5 - 10 mg (1 - 2 x 5 mg) PO TID 11/02/24 PRN muscle spasm #90 tabs Allergies Allergy/AdvReac Type Severity Reaction Status Date / Time No Known Allergies Allergy Verified 11/02/24 08:25 General Stated Complaint: RespSymp AP: 3 Review of Systems All systems reviewed & are unremarkable except as noted in HPI and below Exam Narrative Exam Narrative: GENERAL APPEARANCE: Well-nourished, non-toxic, awake and alert, atraumatic, no acute distress. SKIN: Warm, pink, dry, intact, without rashes/lesions/ulcerations. HEAD: Normocephalic, atraumatic, normal hair distribution for gender/age. EYES: Normal conjunctiva, no exudates on lids/lashes. ENT: Nares patent, no circumoral cyanosis, no facial swelling NECK: Supple, trachea midline, painless cervical ROM. LUNGS/CHEST: Lungs CTA bilaterally- mild expiratory wheezes, non-labored respirations, normal A/P diameter, symmetrical expansion, no chest wall deformity HEART (CV/PV): Regular rate and rhythm without murmur, no peripheral edema, no JVD. ABDOMEN: Soft, non-distended, no guarding. MSK: Normal ROM, no swelling/deformity to bilateral UEs or LEs, moving all extremities without weakness, no cyanosis, spine midline without tenderness, normal curvature. NEURO: Mental Status AAOx4 - alert to person, place, time, events No facial droop, no forehead involvement. Motor: No focal weakness - strength 5/5 in bilateral UEs and LEs, proximal and distal, symmetric. Sensory: sensation intact to light touch globally. Gait normal: patient ambulated without ataxia into ED room. PSYCH: euthymic, cooperative, pleasant, appropriate speech Course Vital Signs Vital signs: Vital Signs Temperature 36.7 C 10/30/24 19:47 Pulse 80 10/30/24 19:47 Respiratory Rate 18 10/30/24 19:47 Blood Pressure 150/71 H 10/30/24 19:47 Pulse Oximetry 97 10/30/24 19:47 Temperature 36.7 C 10/30/24 19:47 Temperature Source Oral 10/30/24 19:47 Pulse 80 10/30/24 19:47 Respiratory Rate 18 10/30/24 19:47 Blood Pressure 150/71 H 10/30/24 19:47 Blood Pressure Position Sitting 10/30/24 19:47 Pulse Oximetry 97 10/30/24 19:47 Oxygen Delivery Method Room Air 10/30/24 19:47 Oxygen Flow Rate 0 10/30/24 19:47 Pain Level 4 10/30/24 19:47 Medical Decision Making This dictation utilizes [id number] dictation software and may contain unedited grammatical errors. 54 year-old female presents to ED today by POV/ambulating with a chief complaint of chest congestion, cough, nausea with onset today- recently her nephew was diagnosed with pneumonia, she spent 3 days with him. Quality described as generalized malaise/cold symptoms, no radiation to respiratory distress, intractable vomiting, abdominal pain, chest pain, high fevers. Severity is described as mild to moderate. Palliating factors include took one dose Tylenol at 6pm. Provoking factors include nothing specific. Patients' medical history: History of subdural hemorrhage, dizziness, unsteady gait, chronic headaches, fibromyalgia, anxiety disorder. Family and social history: Noncontributory, former heavy smoker quit 2.5 years ago. Pertinent exam findings / vital signs include lungs mild expiratory wheezes, no respiratory distress, benign cardiac exam, benign abdomen, nontoxic. Differential / pathologies of concern include viral syndrome, upper respiratory infection, pneumonia. Diagnostic studies of: -XR chest-no acute abnormality. -COVID/flu/RSV PCR-negative Interventions of: -6 mm DuoNeb, albuterol inhaler to go. ED Course/Assessment/Plan: 54-year-old female presents with onset of upper respiratory infection with recent possible pneumonia exposures from her nephew, she is a former heavy smoker I did send her home with an albuterol inhaler after giving her breathing treatment, she has no evidence of pneumonia and her COVID flu PCR swab is negative, it is too early for empiric antibiotics and I stressed she take qwfv-[id number]-[id number] cold medicines for likely viral syndrome of upper respiratory infection with strict return criteria for any severe respiratory distress or other emergent concerns. Findings not consistent with hypoxic respiratory failure, pneumonia, sepsis. Disposition of Viral Syndrome. Patient verbalized understanding of the plan and return to ED criteria and engaged in shared decision making. Medical Records Medical records reviewed: Yes I reviewed the patient's medical records. Imaging Data Radiologic Study: Attestation: I personally reviewed and interpreted this imaging study as follows: Imaging: X-Ray Radiologist's impression: Exam: XR Chest Exam date and time: 10/30/2024 8:11 PM Age: 54 years old Clinical indication: Cough and shortness of breath; Cough, SOB TECHNIQUE: Imaging protocol: Radiologic exam of the chest. Views: 2 views. COMPARISON: CR XR CERVICAL SP ALCANTARA TRAUMA 2-3V 05/09/2023 8:12 AM FINDINGS: Lungs: Unremarkable. No consolidation. Pleural spaces: Unremarkable. No pleural effusion. No pneumothorax. Heart/Mediastinum: Unremarkable. No cardiomegaly. Bones/joints: Unremarkable. IMPRESSION: No acute findings. Dictated and Authenticated by: Christophe Ibarra MD. Lab Data Lab results reviewed: Yes I reviewed the patient's lab results. Labs: Laboratory Tests Range/Units 10/30/24 19:54 COVID-19 Source Nasopharynx SARS-CoV-2 (PCR) (Negative) Negative Influenza Type A (PCR) (Negative) Negative Influenza Type B (PCR) (Negative) Negative RSV (PCR) (Negative) Negative Quality:SDOH Health Related Social Needs: Health related social needs problems related to housing/economic circumstances (Z59.89), feeling lonely/isolated (Z60.8) PFSH All Active Problems Subdural hemorrhage (Acute ~05/13/24) Epilepsy (Chronic) 2 intraoperative seizures 09/17/23 during craniotomy Dizziness (Chronic) Unsteady gait (Chronic) Essential hypertension (Chronic) Hyperlipidemia (Chronic) Major depressive disorder, recurrent (Chronic) Generalized anxiety disorder (Chronic) Fibromyalgia (Chronic) Chronic neck pain (Chronic) Chronic pain of left ankle (Chronic) Insomnia (Chronic) Chronic headaches (Chronic) Class 3 severe obesity with body mass index (BMI) of 40.0 to 44.9 in adult (Chronic) Abnormal Papanicolaou smear of cervix with positive human papilloma virus (HPV) test (Chronic) Oct 2023: ASCUS/HPV+(16/18/45 neg) ->colp: Oct 2022: ASCUS/HPV+(16/18/45 neg) ->colp: benign 2015: WNL Conductive hearing loss in left ear (Chronic) Medical History 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 Son No problems noted. Daughter No problems noted. Maternal Grandfather No problems noted. Maternal Grandmother No problems noted. Paternal Grandfather No problems noted. Paternal Grandmother No problems noted. Social History Smoking/Tobacco Use Status: Former Tobacco Use tobacco type: cigarettes Quit Date: 12/08/22 Pack-years: 15 Tobacco: How many years used: 20 Second Hand Exposure: Yes Smoking risk assessment performed?: Yes Alcohol Intake: current Alcohol Intake frequency: holidays/special occasions only Alcohol type: wine Drug use: Daily Substance use type: marijuana Caregiver/Support person: No Household members: spouse, children and adopted family Housing: house Communication Needs: Hard of Hearing Do you need help understanding health information?: Rarely Pets and animals: Yes Pets and animals: dog(s) Sexually active: Yes Do you think of yourself as: straight/heterosexual Current gender identity: female What is your relationship status?: How often do you talk on the phone with friends or family?: three or more times per week How often do you get together with friends or relatives?: three or more times per week How often do you attend jew or latter day services?: decline to answer Do you belong to any clubs or organized social groups?: no Panel score (0-1 are the most socially isolated patients): 2 What type of physical activity do you participate in: walking and bicycling Duration: 15-30 minutes/day Frequency: 3-4 times per week Duyen/Congregation: No preference Special duyen needs: No Seatbelt use: never Helmet use: No Drive intox or ride w/intox patrol driver: No Do you feel safe at home: Yes Do you feel safe in your relationship?: Yes Female Reproductive History Menstrual Menopause type: natural Date of menopause: 09/08/21 History History 4 Para 3 Hx # Term Pregnancies 2 Multiple births Hx # Pregnancies 1 Ectopic pregnancies AB induced Hx Number of Living Children 3 AB spontaneous 1 Past Pregnancies Del. Date GA/Weeks # Preg Succ Route Wgt Sex Labor Lgth Anesthesia Location Prov Complic 07/26/89 40 No Yes vaginal 3005.049 g [facility] 06/27/91 0 No Yes vaginal 3203.496 g Female [facility] 04/22/93 34 No Yes vaginal 2551.457 g Male [facility] Delivery Date: 07/26/89 Last Updated by: Brandi Marquez MD Ran Delivery Date: 10/19/91 Last Updated by: MD Ailyn Matos Delivery Date: 04/22/93 Last Updated by: Brandi Marquez MD Jamie
[2024-10-30] MEDS: Albuterol/Ipratropium 3 ML UPD VIAL 6 ML UPD (20:16)
[2024-10-30 20:46] VITALS: RESP 2
[2024-10-30 20:48] LABS: COVID-19 PCR Negative (Negative); Influenza A PCR Negative (Negative); Influenza B PCR Negative (Negative); RSV PCR Negative (Negative)
[2024-10-30 20:51] VITALS: BP 129/76; PULSE 85; RESP 19; O2SAT 92
--- NOTE | 2024-10-30 20:53 | DI.VRAD_ITS ---
PROCEDURE INFORMATION: Exam: XR Chest Exam date and time: 10/30/2024 8:11 PM Age: 54 years old Clinical indication: Cough and shortness of breath; Cough, SOB TECHNIQUE: Imaging protocol: Radiologic exam of the chest. Views: 2 views. COMPARISON: CR XR CERVICAL SP ALCANTARA TRAUMA 2-3V 05/09/2023 8:12 AM FINDINGS: Lungs: Unremarkable. No consolidation. Pleural spaces: Unremarkable. No pleural effusion. No pneumothorax. Heart/Mediastinum: Unremarkable. No cardiomegaly. Bones/joints: Unremarkable. IMPRESSION: No acute findings. Dictated and Authenticated by: Christophe Ibarra MD. Orderin Leyla Meneses MD
[2024-10-30 21:11] LABS: Source Nasopharynx
[2024-10-30 21:24] VITALS: BP 136/80; PULSE 89; RESP 20; O2SAT 93
[2024-10-30] MEDS: Inhaler, Assist Device 1 EACH MC (21:24)
== END 2024-10-30 21:24 | disposition home or self-care (01) ==
PROVIDERS: Emergency Provider Physician Assistant; PCP Nurse Practitioner Family
DX: B34.9 Viral infection, unspecified (principal); R05.9 Cough, unspecified; R11.0 Nausea; Z59.89 Other problems related to housing and economic circumstances; Z60.8 Other problems related to social environment
CPT/HCPCS: 87637; 94640; 99284; 71046; J7620

== ENCOUNTER 2024-11-25 02:07 | Outpatient (CLI) | payer MEDICAID, SELFPAY ==
--- NOTE | 2024-11-25 06:30 | DI.MRI_ITS ---
Exam(s) MR CERVICAL SPINE WO EXAM: MR CERVICAL SPINE WO CLINICAL HISTORY: Chronic neck pain,C 2 fx,s/p cervical spinal fusion,m54.2,s12.100a,z98.1 TECHNIQUE: Multiplanar multisequence MRI of the cervical spine was performed without intravenous con trast. COMPARISON: MR MR CERVICAL SPINE WO from 09/20/2022 MR MR BRAIN W from 10/31/[address] HEAD WO from 12/07/2022 MR MRI CERVICAL SPINE WO CONTRAST (GENERIC) from 05/13/2024 FINDINGS: Exam is somewhat limited by motion. BONES: Vertebral body heights are maintained. Alignment is normal. Bone marrow signal intensity is wi thin normal limits. 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 Posterior fusion hardware again noted. No abnorma l signal. CERVICAL CORD: Craniovertebral junction is unremarkable. The cervical cord is normal size and signal intensity. SOFT TISSUES: Unremarkable. C2-3: No disc herniation or bulge is identified. No evidence of neural foraminal narrowing. No signi ficant central canal stenosis. C3-4: No disc herniation or bulge is identified. No evidence of neural foraminal narrowing. No signif icant central canal stenosis. C4-5: Mild loss of disc height. Mild disc bulging. Small uncovertebral osteophytes and facet osteop hytes. Minimal bilateral neural foraminal narrowing. Slight effacement of the anterior thecal sac b ut no significant central canal stenosis. C5-6: No mild loss of disc height. Small endplate osteophytes. Uncovertebral osteophytes and facet degenerative change cause mild bilateral neural foraminal narrowing. Slight effacement of the anteri or C thecal sac but no significant central canal stenosis. C6-7: No disc herniation or bulge is identified. No evidence of neural foraminal narrowing. No signif icant central canal stenosis. C7-T1: No disc herniation or bulge is identified. No evidence of neural foraminal narrowing. No signi ficant central canal stenosis. IMPRESSION: Stable appearance of nonunited dens fracture and posterior hardware. Stable degenerative changes at C4-5 and C5-6. DATA REPOSITORY:
== END 2024-11-25 02:27 ==
LOC: DI 02:07
PROVIDERS: PCP Nurse Practitioner Family; Visit Provider Nurse Practitioner Family
DX: M54.2 Cervicalgia (principal); G89.29 Other chronic pain; S12.100A Unspecified displaced fracture of second cervical vertebra, initial encounter for closed fracture; Z98.1 Arthrodesis status; X58.XXXA Exposure to other specified factors, initial encounter
CPT/HCPCS: 72141

== ENCOUNTER 2024-11-26 11:07 | Outpatient (REF) | payer MEDICAID, SELFPAY ==
--- NOTE | 2024-11-26 10:40 | PAPFT_PTH ---
PATIENT: Loyda Mendoza LOC: [facility] U#:[id number] AGE/SX: 54/F ROOM: RE11/26/[address]: Promise Partida DO : 1970 BED: DIS: 11/26/2024 SPEC #: [id number] RECD: 11/26/24 12:52 STATUS: ELENAEly REQ #: [id number] MONI: 11/26/24 10:[address]: Promise Partida DEPT: [facility] Cytology RECD BY: Marina Castellanos ENTERED: 11/26/24 12:52 SP TYPE: PAPFT OTHR DR: KATT De La TorreP Tissues: 1 - CX/ENDOCX FOR PAP SMEARS Procedures: PAP THIN PREP/UVM Screening HPV DNA PROBE Comments: [id number] (HVP 16 & 18/45)
== END 2024-11-26 11:08 | disposition home or self-care (01) ==
LOC: LBN 11:07
PROVIDERS: PCP Nurse Practitioner Family; Visit Provider Obstetrics & Gynecology
DX: R87.618 Other abnormal cytological findings on specimens from cervix uteri (principal)
CPT/HCPCS: 88142; 87624

== ENCOUNTER 2024-12-09 00:57 | Outpatient (CLI) | payer MEDICAID, SELFPAY ==
--- NOTE | 2024-12-09 07:45 | DI.MAMMO_ITS ---
Exam(s) MAMMO SCREENING EXAM: MAMMO SCREENING CLINICAL HISTORY: screening,z12.39 TECHNIQUE: Bilateral full field digital CC and MLO mammographic images were obtained with 3D tomosyn thesis and utilizing computer aided detection (CAD). COMPARISON: Available for comparison. FINDINGS: Masses/Architectural Distortion: No suspicious masses or areas of architectural distortion are presen t. Microcalcifications: No suspicious pleomorphic-type are seen. Skin Thickening/Nipple Retraction: None. IMPRESSION: 1. No significant interval change with no specific features of malignancy noted. 2. Unless there is more urgent need, screening mammography is recommended, as per [employer] guidelines. BI-RADS Category 1 - Negative Breast Density - Category A - Almost entirely fatty Breast density category C or D implies that the patient has dense breast tissue. Dense breast tissue is very common and is not abnormal but dense breast tissue can make it harder to find cancer on a ma mmogram. Also, dense breast tissue may increase their breast cancer risk. This information about the result of the mammogram report was provided to the patient to raise their awareness. Use this report when you speak with the patient about their risks for breast cancer, which includes their family hist ory. At that time, you may recommend for more screening tests (Ultrasound or MRI) as they might be us eful based on their risk. A negative radiographic report should not delay biopsy if a dominant or clinically suspicious mass is present. Up to ten percent of cancers are not identified on mammography. A negative report may reinforce clinical impression. Adenosis and dense breasts may obscure an underlying neoplasm. False positive reports average 6 to 10%. Patient will receive a letter notifying them of these results.
== END 2024-12-09 01:17 ==
PROVIDERS: PCP Nurse Practitioner Family; Visit Provider Nurse Practitioner Family
DX: Z12.31 Encounter for screening mammogram for malignant neoplasm of breast (principal); R92.313 Mammographic fatty tissue density, bilateral breasts
CPT/HCPCS: 77063; 77067

== ENCOUNTER 2025-06-04 16:30 | Emergency (ER) | payer MEDICAID, SELFPAY ==
[2025-06-04] VITALS (8 sets, daily range): BP systolic 105; BP diastolic 74; PULSE 0–106; RESP 16; TEMP 37.2; O2SAT 94
--- NOTE | 2025-06-04 17:00 | DI.CT_ITS ---
Exam(s) CT BRAIN NECK CTA EXAM: CT BRAIN NECK CTA CLINICAL HISTORY: HUA, hx seizures, migraines, brain surgery. TECHNIQUE: Imaging Protocol: Axial CT angiography was performed with multi- slice acquisition and multi-planar and MIP reconstructions. CONTRAST MATERIAL: Intravenous: Omnipaque 350 Contrast volume:70 ml COMPARISON: MR MR BRAIN AND ORBIT WITH AND WITHOUT CONTRAST from 05/07/2010 MR MR CERVICAL SPINE WO from 09/20/2022 CR XR CERVICAL SP ALCANTARA TRAUMA 2-3V from 05/09/[address] HEAD WO from 09/29/2023 MR MRI CERVICAL SPINE WO CONTRAST (GENERIC) from 05/13/2024 FINDINGS: CT Head W/O and W contrast: Ventricles and Extra axial spaces: Normal in size and morphology for the patient's age. No residual subdural fluid. Hemorrhage: None. Cerebral parenchyma: No evidence of acute infarct or mass. Midline shift: None. Brainstem/Cerebellum: No acute findings.. Calvarium: Left craniotomy. Visualized Paranasal sinuses/Mastoids: Clear. Soft Tissues: Unremarkable. Enhancement: Normal. Venous sinuses are patent. CTA Brain W: Internal Carotid Arteries: Right: No aneurysm, occlusion or significant stenosis. Left: No aneurysm, occlusion or significant stenosis. Middle Cerebral Arteries: Right: No aneurysm, occlusion or significant stenosis. Left: No aneurysm, occlusion or significant stenosis. Anterior Cerebral Arteries: Right: No aneurysm, occlusion or significant stenosis. Left: No aneurysm, occlusion or significant stenosis. Posterior cerebral Arteries: Right: No aneurysm, occlusion or significant stenosis. Left: No aneurysm, occlusion or significant stenosis. Vertebral Arteries: Right: No aneurysm, occlusion or significant stenosis. Left: No aneurysm, occlusion or significant stenosis. Basilar Artery: No aneurysm, occlusion or significant stenosis. CTA Neck W: Visualized aorta: Unremarkable. Visualized pulmonary arteries: Unremarkable. Subclavian arteries: Unremarkable. Common Carotid: Right: No dissection, occlusion or significant stenosis. Left: No dissection, occlusion or significant stenosis. External Carotid: Right: No dissection, occlusion or significant stenosis. Left: No dissection, occlusion or significant stenosis. Internal Carotid: Right: No dissection, occlusion or significant stenosis. Left: No dissection, occlusion or significant stenosis. Vertebral Artery: Right: No dissection, occlusion or significant stenosis. Left: No dissection, occlusion or significant stenosis. Lung Apices: No acute findings. Bones: No acute abnormality. Stable appearance of C2 fracture with posterior fusion hardware in place. The degenerative changes. Soft Tissues: 2 cm right thyroid nodule, not significant changed from 2022. Clinical correlation recommended. IMPRESSION: 1. CTA brain: Normal CTA examination of the [place]. 2. Head CT: Left craniotomy. No acute abnormality. 3. CTA neck: No evidence of occlusion, significant stenosis or dissection. The preliminary [facility] report was reviewed. RADIATION DOSE DELIVERED: Total DLP DATA REPOSITORY: All CT scans at this facility are submitted to the National Radiology Data Registry (NRDR) Dose Index Registry (DIR) with the [employer] (A[employer]). RADIATION OPTIMIZATION: All CT scans at this facility use at least one of these dose optimization techniques: automated exposure control; mA and/or kV adjustment per patient size (includes targeted exams where dose is matched to clinical indication); or iterative reconstruction.
--- NOTE | 2025-06-04 17:30 | ED.GENADUL_ITS ---
Discharge Plan Disposition Patient Disposition: Home Condition: Stable Discharge Details Clinical Impression: Chronic headaches, Cellulitis, Right thyroid nodule Primary Care Provider: Gloria Diaz ED Provider: Sary Tellez Recommendations for Follow Up Recommended tests to be ordered by follow up provider: Thyroid US Home Meds and New Rx's Prescriptions: No Action vitamin B complex [B Complex-Vitamin B12] Tablet 1 tab PO DAILY cholecalciferol (vitamin D3) 25 mcg (1,000 unit) capsule 25 mcg PO DAILY baclofen 5 mg tablet 5 - 10 mg PO TID PRN (Reason: muscle spasm) Qty: 90 0RF celecoxib [Celebrex] 100 mg capsule 100 mg PO BID Qty: 180 3RF duloxetine 60 mg capsule,delayed release(DR/EC) 60 mg PO DAILY Qty: 90 3RF Rx Instructions: Take 1 pill daily cephalexin 500 mg capsule 500 mg PO QID Qty: 28 0RF multivitamin 1 EACH tablet 1 tab PO DAILY levetiracetam 750 mg tablet 1,500 mg PO BID Patient Comments: Start date 09/20/23 ondansetron 4 mg tablet,disintegrating 4 mg PO Q8H PRN (Reason: nausea and vomiting) Qty: 30 0RF acetaminophen 325 mg tablet See Rx Instructions PO Q6H PRN Rx Instructions: 975mg orally every 6 hours PRN; lisinopril 20 mg tablet 20 mg PO DAILY Qty: 90 3RF Rx Instructions: Take 1 tab daily propranolol 60 mg capsule,extended release 24 hr 60 mg PO DAILY Patient Comments: TAKE ONE CAPSULE BY MOUTH EVERY DAY tramadol 50 mg tablet 50 mg PO DAILY PRN Patient Comments: TAKE ONE TABLET BY MOUTH EVERY 6 HOURS NEEDED FOR PAIN magnesium oxide 400 mg (241.3 mg magnesium) tablet 400 mg PO DAILY Patient Comments: TAKE ONE TABLET BY MOUTH EVERY DAY hydroxyzine HCl 10 mg tablet 10 mg PO BID PRN Patient Comments: TAKE ONE TABLET BY MOUTH TWICE A DAY NEEDED FOR HEADACHE Discharge Instructions Instructions: Cellulitis (Skin Infection), Adult ED Additional Instructions: You were seen in the emergency department today for evaluation of a severe he adache as well as redness and pain in your lower extremity that is concerning for skin and soft tissue infection. In our department you do full physical examination performed and had CT scans of your brain and neck that did not show any abnormalities such as structural changes to the brain, blood vessel problems, or bleeding. You were incidentally noted to have a right sided thyroid nodule which your primary care provider will need to ultrasound in the outpatient environment. Please contact them to discuss this finding. I have a lower suspicion for blood clot in your leg, but you can call the ultrasound department at [phone] on Saturday through Saturday, anytime after 6 AM, to discuss the order that was placed by the urgent care provider. You should leave a message with your name, date of , and a callback number if nobody answers. Please continue to use your home medications for management of your headache, and contact your neurologist to discuss this visit. Please maintain good hydration and nutrition, and please follow-up with your primary care provider in the next few days to discuss this visit and any symptoms that change, worsen, or persist. Thank you for allowing us to be part of your care. HPI General Mode of arrival: ambulatory . Date/Time Provider Initiated Documentation: 06/04/25 16:34 . Limitations to Documentation: no limitations . Information obtained by: patient, family and old records reviewed . HPI Narrative: This is a 55-year-old female patient with a past medical history significant for encephalocele, status postcraniotomy, complicated by generalized seizures, and history of chronic headaches/migraine, hypertension, hyperlipidemia, who is presenting for evaluation today of a headache that is worse than typical, as well as redness and pain of her left lower extremity. Regarding her leg, she reports that she noticed this morning that the ankle wrapping around the back was quite painful to touch. She notes some redness of the skin and mild swelling. She was seen at urgent care, who recommended an outpatient ultrasound to evaluate for DVT. They also provided her with a prescription for Keflex given the appearance for mild cellulitis. She states that she went home and went to bed, because her headache was bothering her and missed that appointment. She states that she has no personal history of thromboembolic disease, denies new numbness, tingling, or weakness of the lower extremity. The patient's generalized headache, associated with photophobia, nausea, is similar in character to her prior headaches, but worse in severity. She has taken Tylenol and naproxen, which has not improved her symptoms. No recent trauma or injury, did have a transient episode of fingertip tingling bilaterally which resolved after a few hours. No other numbness or weakness, no seizure activity reported, has been taking her medications as prescribed. Related Data Home Medications ?Medication ?Instructions ?Recorded ?Confirmed multivitamin 1 tab PO DAILY 06/04/1305/11 cholecalciferol (vitamin D3) 25 25 mcg PO DAILY 06/04/25 mcg (1,000 unit) capsule vitamin B complex (B 1 tab PO DAILY 05/11/2205/11 Complex-Vitamin B12 tablet) levetiracetam 750 mg tablet 1,500 mg PO BID 09/23/23 0 06/04/25 ondansetron 4 mg disintegrating 4 mg PO Q8H PRN nausea and 03/05/24 06/04/25 tablet vomiting #30 tabs acetaminophen 325 mg tablet See Rx Instructions PO Q6H PRN 05/22/24 06/04/25 lisinopril 20 mg tablet 20 mg PO DAILY #90 tabs 09/0906/04/25 hydroxyzine HCl 10 mg tablet 10 mg PO BID PRN 10/30/24 06/04/25 magnesium oxide 400 mg (241.3 mg 400 mg PO DAILY 10/3006/04/25 magnesium) tablet propranolol 60 mg capsule,24 60 mg PO DAILY 10/30/24 0 06/04/25 hr,extended release tramadol 50 mg tablet 50 mg PO DAILY PRN 10/30/24 06/04/25 baclofen 5 mg tablet 5 - 10 mg (1 - 2 x 5 mg) PO TID 11/02/24 06/04/25 PRN muscle spasm #90 tabs celecoxib 100 mg capsule (Celebrex) 100 mg PO BID #180 caps 01/11/25 06/04/25 duloxetine 60 mg capsule,delayed 60 mg PO DAILY #90 ca ps 01/11/25 06/04/25 release cephalexin 500 mg capsule 500 mg PO QID #28 caps 06/0406/04/25 Previous Rx's ?Medication ?Instructions ?Recorded ondansetron 4 mg disintegrating 4 mg PO Q8H PRN nausea and 03/05/24 tablet vomiting #30 tabs lisinopril 20 mg tablet 20 mg PO DAILY #90 tabs 09/09 04/02 baclofen 5 mg tablet 5 - 10 mg (1 - 2 x 5 mg) PO TID 11/02/24 PRN muscle spasm #90 tabs celecoxib 100 mg capsule (Celebrex) 100 mg PO BID #180 caps 01/11/25 duloxetine 60 mg capsule,delayed 60 mg PO DAILY #90 ca ps 01/11/25 release cephalexin 500 mg capsule 500 mg PO QID #28 caps 06/04 Allergies Allergy/AdvReac Type Severity Reaction Status Date / Time No Known Allergies Allergy Verified 06/04/25 11:43 General Stated Complaint: Headache AP: 3 Exam Narrative Exam Narrative: Gen: awake and alert, appears uncomfortable HEENT: PERRL, EOMs full and without nystagmus. Right sided eyelid slightly more droopy than the left, patient reports that she did not note any change in her appearance in the mirror today. External ears and nose normal, mucous membranes moist. Neck: Supple, full range of motion, no observable masses Lungs: No increased work of breathing CV: Heart with regular rate and rhythm. Strong and symmetrical radial pulses. Abdomen: Soft, nondistended, non-tender MSK: No joint swelling, full ROM without limitation, no external traumatic findings. No peripheral edema or unilateral leg swelling, there is an area of redness on the anterior left ankle rating around the medial aspect, slightly warm compared to unaffected skin. It is not well-demarcated, there is no unilateral calf tenderness, strong DP pulses bilaterally Skin: No rashes or lesions to visualized skin. Normal color, warm, and dry. Neuro: Cranial nerves II-XII intact and symmetrical bilaterally with the exception of the mild right eyelid droop of unknown chronicity. 5/5 strength in all muscle groups x4 extremities. No sensory deficits. Ambulates with steady gait. Psych: Appropriate for situation. Course Vital Signs Vital signs: Vital Signs Temperature 37.2 C 06/04/25 16:32 Pulse 106 H 06/04/25 16:32 Respiratory Rate 16 06/04/25 16:32 Blood Pressure 105/74 06/04/25 16:32 Pulse Oximetry 94 06/04/25 16:32 Temperature 37.2 C 06/04/25 16:35 Pulse 91 H 06/04/25 16:46 Pulse 95 H 06/04/25 16:50 Respiratory Rate 16 06/04/25 16:35 Blood Pressure 105/74 06/04/25 16:35 Pulse Oximetry 94 06/04/25 16:35 Pain Level 8 06/04/25 16:35 Medical Decision Making This is a 55-year-old female patient presenting for evaluation of headache and right leg redness and pain. Regarding her leg I am most suspicious for cellulitis, her exam is less consistent with DVT, there is no evidence for arterial occlusion, she does not have any large wounds nor does she have a history of diabetes which puts her at increased risk of osteomyelitis. She does not have any systemic symptoms suggestive of sepsis or bacteremia. 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 Treatment considered intracranial hemorrhage, vascular abnormality including dissection and aneurysm, considered structural abnormality given her history of same, CSF leak, etc. She is not hypertensive, and I have a low concern for press/RCVS. No active seizure activity reported. We will provide the patient with a liter of IV fluids, Toradol, Reglan, and Benadryl for initial symptomatic management. I will obtain a CTA brain and neck, and obtain basic labs to include CBC, CMP, magnesium- . -I reviewed the patient's laboratory studies, and noted a leukocytosis to 20, which certainly does support our concern for an infectious pathology. No anemia or thrombocytopenia. Chemistry panel reveals a low magnesium at 1.5, which will be repleted, otherwise no electrolyte derangements, evidence of kidney dysfunction or liver disease. CT scan was reviewed by myself, I did review the radiology notes, which revealed no evidence of intracranial hemorrhage, vascular abnormality, mass effect or other obvious cause of her headaches. She does have an incidental note of a right thyroid nodule, which was shared with her and will require outpatient ultrasound. On reassessment the patient reports that her symptoms are significantly improved and she is desiring of discharge. She is well followed with neurology and ENT for her chronic headaches, and I counseled her on ongoing conservative management of pain. I did provide her with her first days worth of Keflex, the remainder of her prescription was sent to the pharmacy by urgent care, and counseled her to take all this medication until it is gone, even if she starts to feel better. She will call the outpatient diagnostic imaging department to reschedule her outpa tient ultrasound of her left lower extremity. At this time, the patient has had a full medical evaluation and is safe for discharge to home. They are hemodynamically stable, ambulatory, and tolerating PO. They are understanding of the follow-up plan and return precautions. They left our facility without incident. Sary Tellez MD Quality:SDOH Health Related Social Needs: Health related social needs house/econ circumstance lo lc/isolated PFSH All Active Problems (Updated 06/04/25 @ 20:31 by Sary Tellez MD) Right thyroid nodule (Acute) Cellulitis (Acute) Pain disorder associated with psychological and physical factors (Acute) Chronic idiopathic pain syndrome (Acute) Cervicalgia (Acute) Well woman exam with routine gynecological exam (Acute) Subdural hemorrhage (Acute ~05/13/24) Epilepsy (Chronic) 2 intraoperative seizures 09/17/23 during craniotomy Dizziness (Chronic) Unsteady gait (Chronic) Essential hypertension (Chronic) Hyperlipidemia (Chronic) Major depressive disorder, recurrent (Chronic) Generalized anxiety disorder (Chronic) Fibromyalgia (Chronic) Chronic neck pain (Chronic) Chronic pain of left ankle (Chronic) Insomnia (Chronic) Chronic headaches (Chronic) Class 3 severe obesity with body mass index (BMI) of 40.0 to 44.9 in adult (Chronic) Abnormal Papanicolaou smear of cervix with positive human papilloma virus (HPV) test (Chronic) 11/26/2024:Pap Oct 2023: ASCUS/HPV+(16/18/45 neg) ->colp: Oct 2022: ASCUS/HPV+(16/18/45 neg) ->colp: benign 2015: WNL Conductive hearing loss in left ear (Chronic) Medical History 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 Son No problems noted. Daughter No problems noted. Maternal Grandfather No problems noted. Maternal Grandmother No problems noted. Paternal Grandfather No problems noted. Paternal Grandmother No problems noted. Social History Smoking/Tobacco Use Status: Former Tobacco Use tobacco type: cigarettes Quit Date: 12/08/22 Pack-years: 15 Tobacco: How many years used: 20 Second Hand Exposure: Yes Smoking risk assessment performed?: Yes Alcohol Intake: current Alcohol Intake frequency: holidays/special occasions only Alcohol type: wine Drug use: Daily Substance use type: marijuana Caregiver/Support person: No Household members: spouse, children and adopted family Housing: house Communication Needs: Hard of Hearing Do you need help understanding health information?: Rarely Pets and animals: Yes Pets and animals: dog(s) Sexually active: Yes Do you think of yourself as: straight/heterosexual Current gender identity: female What is your relationship status?: How often do you talk on the phone with friends or family?: three or more times per week How often do you get together with friends or relatives?: three or more times per week How often do you attend spiritism or yazdanism services?: decline to answer Do you belong to any clubs or organized social groups?: no Panel score (0-1 are the most socially isolated patients): 2 What type of physical activity do you participate in: walking and bicycling Duration: 15-30 minutes/day Frequency: 3-4 times per week Duyen/Latter-Day: No preference Special duyen needs: No Seatbelt use: never Helmet use: No Drive intox or ride w/intox services delivery driver: No Do you feel safe at home: Yes Do you feel safe in your relationship?: Yes Female Reproductive History Menstrual Menopause type: natural Date of menopause: 09/08/21 History History 4 Para 3 Hx # Term Pregnancies 2 Multiple births Hx # Pregnancies 1 Ectopic pregnancies AB induced Hx Number of Living Children 3 AB spontaneous 1 Past Pregnancies Del. Date GA/Weeks # Preg Succ Route Wgt Sex Labor Lgth Anesth esia Location [facility] 07/26/89 40 No Yes vaginal 3005.049 g [facility] 10/19/91 0 No Yes vaginal 3203.496 g Female [facility] 04/22/93 34 No Yes vaginal 2551.457 g Male [facility] Delivery Date: 07/26/89 Last Updated by: MD Ervin Matos Delivery Date: 06/27/91 Last Updated by: MD Ailyn Matos Delivery Date: 04/22/93 Last Updated by: Brandi Marquez MD Jamie
[2025-06-04] MEDS: Normal Saline Flush 10 ML SYR IVP (17:41)
[2025-06-04] MEDS: Omnipaque 350 MG/ML 100 ML BTL IJ (17:42)
[2025-06-04] MEDS: Normal Saline - Diluent 50 ML VIAL IJ (17:42)
[2025-06-04 17:45] LABS: Abs Immature Grans 0.16 10^3/uL (0.0-0.06); HCT 39.0 % (36.0-46.0); HGB 13.0 g/dL (11.2-15.7); Immature Grans % 0.8 %; MCH 30.6 pg (27.0-33.0); MCHC 33.3 % (32.0-36.0); MCV 92 fL (80-95); MPV 10.4 fL (8.0-11.0); Platelet Count 244 10^3/uL (130-400); RBC 4.25 10^6/uL (3.93-5.22); RDW 13.1 % (11.7-14.6); RDW-SD 44.1 fL; WBC 20.37 10^3/uL (4.4-10.8)
[2025-06-04 17:59] LABS: ALT 22 U/L (14-59); AST 17 U/L (15-37); Albumin 3.2 g/dL (3.4-5.0); Alkaline Phosphatase 73 U/L (46-116); Anion Gap 8.2 mmol/L (3-11); BUN 11 mg/dL (7-18); Bilirubin, Total 0.6 mg/dL (0.2-1.0); CO2 25.8 mmol/L (21.0-32.0); Calcium 8.9 mg/dL (8.5-10.1); Chloride 101 mmol/L (98-107); Estimated GFR 66.53 (mL/min/1.73m2); Glucose 125 mg/dL (74-106); Magnesium 1.5 mg/dL (1.8-2.4); Potassium 3.9 mmol/L (3.5-5.1); Sodium 135 mmol/L (136-145); Total Protein 7.2 g/dL (6.4-8.2)
[2025-06-04] MEDS: Lactated Ringers 1,000 ML 1000 ML IV (18:14)
[2025-06-04] MEDS: diphenhydrAMINE 50 MG/ML VIAL 25 MG IVP (18:17)
[2025-06-04] MEDS: Ketorolac 15 MG/ML VIAL IVP (18:18)
[2025-06-04] MEDS: Metoclopramide 10 MG/2 ML VIAL IVP (18:18)
[2025-06-04] MEDS: MAGNESIUM SULFATE 2 GM/50 ML BAG IV_INF (19:30)
--- NOTE | 2025-06-04 20:21 | DI.VRAD_ITS ---
PROCEDURE INFORMATION: Exam: CTA Head Without And With Contrast, Arteriography Exam date and time: 06/04/2025 7:09 PM Age: 55 years old Clinical indication: Headache; Additional info: HUA, HX seizures, migraines, brain surgery TECHNIQUE: Imaging protocol: Computed tomographic angiography of the head without and with contrast. Exam focused on the arteries. 3D rendering (Not supervised by radiologist): MIP and/or 3D reconstructed images were created by the technologist. Contrast material: OMNIPAQUE 350; Contrast volume: 70 ml; Contrast route: INTRAVENOUS (IV); COMPARISON: CT HEAD WO 09/29/2023 11:50 AM FINDINGS: ANTERIOR CIRCULATION: Right internal carotid artery: Intracranial segment is patent with no significant stenosis or occlusion. No aneurysm. Right middle cerebral artery: No occlusion or significant stenosis. No aneurysm. Right anterior cerebral artery: No occlusion or significant stenosis. No aneurysm. Left internal carotid artery: Intracranial segment is patent with no significant stenosis. No aneurysm. Left middle cerebral artery: No occlusion or significant stenosis. No aneurysm. Left anterior cerebral artery: No occlusion or significant stenosis. No aneurysm. POSTERIOR CIRCULATION: Right vertebral artery: No occlusion or significant stenosis. No aneurysm. Left vertebral artery: No occlusion or significant stenosis. No aneurysm. Basilar artery: No occlusion or significant stenosis. No aneurysm. Right posterior cerebral artery: No occlusion or significant stenosis. No aneurysm. Left posterior cerebral artery: No occlusion or significant stenosis. No aneurysm. HEAD: Brain: Normal. No hemorrhage. Unremarkable white matter. No mass effect. Cerebral ventricles: Normal. No ventriculomegaly. Bones: Evidence of prior left temporal craniotomy. Bones are otherwise unremarkable. Paranasal sinuses: Visualized sinuses are normal. No fluid levels. Mastoid air cells: Visualized mastoids are normal. No mastoid effusion. Soft tissues: Unremarkable. IMPRESSION: 1. No large vessel intracranial stenosis or occlusion. 2. No acute intracranial abnormality PROCEDURE INFORMATION: Exam: CTA Neck Without And With Contrast Exam date and time: 06/04/2025 7:09 PM Age: 55 years old Clinical indication: Headache; Additional info: HUA, HX seizures, migraines, brain surgery TECHNIQUE: Imaging protocol: Computed tomographic angiography of the neck without and with contrast. Exam focused on the cervical segments of the vasculature. 3D rendering (Not supervised by radiologist): MIP and/or 3D reconstructed images were created by the technologist. Contrast material: OMNIPAQUE 350; Contrast volume: 70 ml; Contrast route: INTRAVENOUS (IV); COMPARISON: CT HEAD WO 09/29/2023 11:50 AM FINDINGS: Right common carotid artery: No stenosis. No dissection or occlusion. Right internal carotid artery: No stenosis of the extracranial segment. No dissection or occlusion. Right external carotid artery: No occlusion or stenosis of the origin. Left common carotid artery: No stenosis. No dissection or occlusion. Left internal carotid artery: No stenosis of the extracranial segment. No dissection or occlusion. Left external carotid artery: No occlusion or stenosis of the origin. Right vertebral artery: No stenosis. No dissection or occlusion. Left vertebral artery: No stenosis. No dissection or occlusion. Thyroid: 2.2 cm complex cyst versus solid nodule in the right lobe of the thyroid gland. Soft tissues: Normal. No significant soft tissue swelling. 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 Moderate degenerative disc changes at the C5-C6 disc level. No acute fracture. IMPRESSION: 1. No carotid or vertebral artery stenosis or occlusion 2. Complex 2.2 cm right lobe thyroid lesion. Correlation with thyroid ultrasound recommended 3. Chronic osseous changes as noted. REFERENCES: NASCET CRITERIA. The degree of stenosis in the cervical segment of the internal carotid artery is based on NASCET criteria. Normal is no stenosis. Mild is less than 50% stenosis. Moderate is 50-69% stenosis. Severe is 70% to 99% stenosis. Total occlusion is no detectable patent lumen. Dictated and Authenticated by: Christophe Ibarra MD. Orderin [facility]. Jeff Okeefe MD
[2025-06-04] MEDS: Cephalexin 500 MG CAP, 4 CAPS/BTL PO (20:52)
== END 2025-06-04 20:41 | disposition home or self-care (01) ==
PROVIDERS: Emergency Provider Emergency Medicine; PCP Nurse Practitioner Family
DX: R51.9 Headache, unspecified (principal); L03.116 Cellulitis of left lower limb; E04.1 Nontoxic single thyroid nodule; Z59.89 Other problems related to housing and economic circumstances; Z60.8 Other problems related to social environment
CPT/HCPCS: 70496; 70498; 80053; 96361; 96365; 96375; 99285; 83735; 85025; 99284; J1200; J1885; J2765; J3475; J3490

== ENCOUNTER 2025-06-08 02:14 | Outpatient (CLI) | payer MEDICAID, SELFPAY ==
--- NOTE | 2025-06-08 07:00 | DI.US_ITS ---
Exam(s) US LOWER EXTREMITY VENOUS LT EXAM: US LOWER EXTREMITY VENOUS LT CLINICAL HISTORY: left luis redness, and leg pain,M79.605 TECHNIQUE: Grayscale, color, and doppler imaging of the deep venous system of the lower extremity was performed. COMPARISON: No exams were available for comparison FINDINGS: There is no evidence of intraluminal thrombus and there is normal compression and augmentation demonstrated within the common femoral vein, femoral vein, and popliteal vein. In the ipsilateral calf the interrogated veins also exhibit normal compression/ augmentation properties. The ipsilateral saphenofemoral junction is patent. There are patent compressible varicose veins on the mid to distal anterior medial thigh noted. There are few slightly prominent lymph nodes in the left groin noted. The largest measures 3.4 x 1.0 x 1.8 cm. IMPRESSION: 1. No evidence of DVT in the left lower extremity. 2. There patent varicose veins in the left thigh 3. Slightly prominent lymph nodes are noted in the left groin. DATA REPOSITORY:
== END 2025-06-08 02:34 ==
LOC: DI 02:14
PROVIDERS: PCP Nurse Practitioner Family; Visit Provider Physician Assistant
DX: M79.605 Pain in left leg (principal)
CPT/HCPCS: 93971

== ENCOUNTER 2025-06-17 04:27 | Outpatient (CLI) | payer MEDICAID, SELFPAY ==
--- NOTE | 2025-06-17 06:15 | DI.RAD_ITS ---
Exam(s) XR TIB/FIB LT EXAM: XR TIB/FIB LT CLINICAL HISTORY: cellulitis, pain leg, ? SIGNS OF OSTEO,l03.116. TECHNIQUE: 2D digital imaging was performed. COMPARISON: No exams were available for comparison FINDINGS: Two views No evidence of fracture of the tibia and fibula. Bone density normal. No evidence of periosteal abnormalities nor other evidence to suggest osteomyelitis. Diffuse the soft tissue swelling noted. Apparently known diffuse cellulitis. There is no radiopaque foreign body. IMPRESSION: No obvious evidence of osteomyelitis. No fractures. DATA REPOSITORY: RADIATION DOSE DELIVERED:
--- NOTE | 2025-06-17 06:15 | DI.RAD_ITS ---
Exam(s) XR ANKLE LT COMPLETE EXAM: XR ANKLE LT COMPLETE CLINICAL HISTORY: cellulitis, pain leg, ? SIGNS OF OSTEO,l03.116. TECHNIQUE: 2D digital imaging was performed. COMPARISON: CR XR ANKLE LT COMPLETE from 09/20/2022 FINDINGS: 3 views There is diffuse soft tissue swelling both sides of the visualized lower calf. No radiopaque foreign body. No gas in the soft tissues. No evidence of fracture or widening the ankle mortise. Talar dome unremarkable. Small inferior calcaneal spur noted as well as tiny enthesophyte on the posterior calcaneus Achilles insertion site. There are no degenerative changes in the tibiotalar and subtalar joints nor in the other hindfoot articulations. IMPRESSION: Soft tissue swelling. There appears to be a skin defect on the posterior lower calf above the Achilles tendon. Correlation with any visible skin ulcer at this level recommended. No evidence of fracture or osteomyelitis. DATA REPOSITORY: RADIATION DOSE DELIVERED:
== END 2025-06-17 04:47 ==
LOC: DI 04:28
PROVIDERS: PCP Nurse Practitioner Family; Visit Provider Nurse Practitioner Family
DX: L03.116 Cellulitis of left lower limb (principal); M86.062 Acute hematogenous osteomyelitis, left tibia and fibula
CPT/HCPCS: 73590; 73610

== ENCOUNTER 2025-06-23 00:06 | Outpatient (CLI) | payer MEDICAID, SELFPAY ==
[2025-06-23 10:06] LABS: Hemoglobin A1C 5.9 % (<5.7)
[2025-06-23 10:49] LABS: Anion Gap 8.9 mmol/L (3-11); BUN 10 mg/dL (7-18); CO2 28.1 mmol/L (21.0-32.0); Calcium 9.2 mg/dL (8.5-10.1); Calculated LDL 148 mg/dL (<100); Chloride 104 mmol/L (98-107); Cholesterol 205 mg/dL (<200); Estimated GFR 75.50 (mL/min/1.73m2); Glucose 98 mg/dL (74-106); HDL Cholesterol 39 mg/dL (>or=50); Potassium 4.7 mmol/L (3.5-5.1); Sodium 141 mmol/L (136-145); Triglyceride 92 mg/dL (<150)
[2025-06-23 19:15] LABS: Hepatitis C Ab w Rflx HCV PCR Negative (Negative)
[2025-06-23 20:38] LABS: HBs Antibody, Quant <3.1 mIU/mL (See Note); Hepatitis B Surface Antigen Negative (Negative)
[2025-06-25 09:47] LABS: Lab Add On Test DONE
[2025-06-25 10:10] LABS: TSH (W/Ref FT4) 1.06 uIU/mL (0.36-3.74)
== END 2025-06-23 00:07 | disposition home or self-care (01) ==
LOC: LBO 00:06
PROVIDERS: PCP Nurse Practitioner Family; Visit Provider Nurse Practitioner Family
DX: E78.5 Hyperlipidemia, unspecified (principal); I10 Essential (primary) hypertension; Z11.59 Encounter for screening for other viral diseases
CPT/HCPCS: 36415; 80048; 80061; 86704; 86706; 86803; 87340; 83036; 84443

== ENCOUNTER 2025-06-23 00:11 | Outpatient (CLI) | payer MEDICAID, SELFPAY ==
--- NOTE | 2025-06-23 06:15 | DI.US_ITS ---
Exam(s) US THYROID EXAM: US THYROID CLINICAL HISTORY: right thyroid nodule on neck CTA,E04.1. TECHNIQUE: Ultrasound thyroid performed using standard protocol. COMPARISON: CT CT BRAIN NECK CTA from 06/04/2025 FINDINGS: ISTHMUS: 0.2 mm RIGHT LOBE: Size: 5.3 x 2.2 x 2.4 cm Echogenicity: Normal. Vascularity: Normal. Nodules: There is a 2.2 x 1.6 x 1.4 cm solid hypoechoic nodule in the mid right lobe corresponding to the CT finding. It is taller than wide and contains both peripheral and macrocalcifications. It is consistent with a TI rads level 5 nodule. Due to its size, FNA is recommended. There is a 0.8 x 0.4 x 0.8 cm solid isoechoic nodule in the inferior pole of the right lobe. It is consistent with a TI rads level 3 nodule. Due to its size no follow-up is recommended. LEFT LOBE: Size: 4.0 x 1.8 x 1.9 cm Echogenicity: Normal. Vascularity: Normal. Nodules: There are few small nodules in the left thyroid gland, however, none require follow-up or FNA. OTHER FINDINGS: None. IMPRESSION: 2.2 x 1.6 x 1.4 cm TI rads level 5 nodule in the right lobe. FNA is recommended. DATA REPOSITORY:
== END 2025-06-23 00:31 ==
LOC: DI 00:11
PROVIDERS: PCP Nurse Practitioner Family; Visit Provider Nurse Practitioner Family
DX: E04.1 Nontoxic single thyroid nodule (principal)
CPT/HCPCS: 76536